=== PATIENT | male | born 1945 | race Caucasian/White ===

== ENCOUNTER 2017-06-07 07:44 | Inpatient (IN) | payer OTHER, MEDICARE ==
[~2017-06-07] VITALS: Ht 180.3 cm; Wt 97.5 kg
[~2017-06-07 07:44] MED LIST: ALEVE ARTHRITI220 MG PO; ALEVE220 MG PO; ASPIRIN81 M1 PO; CYCLOBENZAPRINE10 MG PO; NEURONTIN300 M1 PO; PLAVIX 75MG TAB75 MG PO; TRAMADOL50 MG PO; ZOCOR40 M1 PO
--- NOTE | 2017-06-07 07:59 | ED NEURO DEFICIT/STROKE ---
History of Present Illness General Chief Complaint: General Adult Stated Complaint: BIBA "MUSCLE SPASMS" Source: patient, family, old records, EMS Exam Limitations: no limitations Allergies Coded Allergies: NO KNOWN ALLERGIES (01/27/16) Reconcile Medications Clopidogrel Bisulfate (Clopidogrel) 75 MG TABLET 1 TAB PO DAILY BLOOD THINNER (Reported) Doxazosin Mesylate 2 MG TABLET 1 TAB PO DAILY HTN (Reported) Gabapentin (Neurontin) 300 MG CAPSULE 1 CAP PO QPM PAIN (Reported) Pregabalin (Lyrica) 100 MG CAPSULE 1 CAP PO TID NEUROPATHY (Reported) Simvastatin (Zocor*) 40 MG TABLET 1 TAB PO QPM CHOLESTEROL (Reported) Triage Nurses Notes Reviewed? yes HPI: 71-year-old male with history of TIA on Plavix, chronic back pain sciatica presents brought in by ambulance. According to the patient at 6:30 this morning he woke up went to the bathroom and began doing his daily exercises for his back. He states at that time he suddenly began to have a "buzzing" in his head and began to have spasms of his arms and legs and jaw. He denies headache or vision changes. He denies similar episodes in the past no alcohol or drug use no recent fall or head trauma. He denies nausea or vomiting however now complaining of feeling dizzy. The patient states that he's had tremors to his extremities since this occurred. The only recent change in his medication was at his Lyrica was increased 2 weeks ago by his neurologist Dr. Hung marcano Patient was medicated Benadryl in route with improvement in symptoms. The patient states that his mind feels "clear" and he has no difficulty finding his words it is however he is having difficulty opening his mouth to speak. He denies history of seizure disorder he states he's had an EEG in the past. There 's been no other recent changes in any physical medication. There's been no change in his mental status per family who is at bedside. (MERVIN TRAN,MADDIE) Vital Signs & Intake/Output Vital Signs & Intake/Output Vital Signs Date Time Temp Pulse Resp B/P B/P Pulse O2 O2 Flow FiO2 Mean Ox Delivery Rate 06/07 1213 98.2 82 18 142/79 96 06/07 0908 98.4 76 18 142/79 98 Room Air 06/07 0830 98 Room Air 06/07 0748 98.9 93 18 155/84 98 Room Air Past History Travel History Traveled to [place] past 21 day No Medical History Any Pertinent Medical History? see below for history Neurological: TIA, shingles, cerebellar stroke Musculoskeletal: osteoarthritis, sciatica Pneumonia Vaccine: 08/26/13 Surgical History Surgical History: LUMBAR SURGERY Psychosocial History Who do you live with Spouse What is your primary language Albanian Family History Family History, If Any: BROTHER Family history stroke in brother, Onset: 40-50. Hx Contributory? No (MADDIE RAINEY) Review of Systems Review of Systems Constitutional: Reports: see HPI. All Other Systems: Reviewed and Negative Comments Review of systems: See HPI, All other systems negative. Constitutional, no chills no fever, no malaise HEENT: No visual changes no sore throat no congestion Cardiovascular: No chest pain , no palpitation Skin: no rashes, no change in skin Respiratory: No dyspnea no cough no sputum GI: No nausea no vomiting, no diarrhea, no bloating/constipation : No dysuria Muscle skeletal: No joint pain, no joint swelling, no back pain, no neck pain, Neurologic: No numbness no confusion, no headache Psych: No stress Heme/endocrine: No bruising Immunology: No lymphadenopathy (MADDIE RAINEY) Physical Exam Physical Exam General Appearance: well developed/nourished, alert, awake Cranial Nerves: normal hearing, PERRL Reflexes: 2+: tricep (L), tricep (L), knee (R), knee (L), ankle (R), ankle (L). Comments: Well-developed well-nourished person in no acute distress HEENT: Normal EENT exam; PERRL, EOMI, no nystagmus. HEAD is atraumatic. moist mucous membranes. Neck: Supple, normal range of motion Back: Nontender, Full range of motion Cardiovascular: Regular rate and rhythms no murmurs rubs Respiratory: Chest nontender.There were no bony deformities, no asymmetry. No respiratory distress. Patient speaking in full complete sentences. Breath sounds clear to auscultation bilaterally: NO W/R/R Abdomen: Soft, nontender nondistended, no appreciable organomegaly. Normal bowel sounds. No rebound/guarding, Extremity: No edema, full range of motion of extremities, normal and equal pulses bilaterally, 5 out of 5 strength noted to bilateral upper and lower extremities Neuro: Alert oriented x3, rotary movements of the jaw at rest there is no abnormal movement of the arms or legs, motor sensory normal, cranial nerves II through XII grossly intact. There were no obvious focal neurologic abnormalities. Skin: No appreciable rash on exposed skin, skin is warm and dry. Psych: Mood and affect is normal, memory and judgment is normal Core Measures CVA/TIA Diagnosis: No Severe Sepsis Present: No Septic Shock Present: No (MERVIN TRAN,MADDIE) Progress Differential Diagnosis: electrolyte imbalance, encephalitis, hypoglycemia, intracranial Hem., intracranial mass/tumor, meningitis, migraine BRIONES, seizure disorder, stroke, subarachnoid Hem., vertebrobasilar insuff., dystonic reaction, tardive dyskinesia, adverse reaction to medication Diagnostic Imaging: Viewed by Me: MRI. Discussed w/RAD: MRI. Radiology Impression: PATIENT: CONSTANTINE MCWILLIAMS PRESENT AGE : 71 PATIENT ACCOUNT NO: [id number] : 47 LOCATION: [facility] ORDERING PHYSICIAN: MADDIE TRAN SERVICE DATE: 06/07/17 EXAM TYPE: CAT - CT HEAD WO IV CONTRAST EXAMINATION: CT HEAD WITHOUT CONTRAST CLINICAL INFORMATION: Weakness and aphasia. COMPARISON: Head CT from 01/27/2016 TECHNIQUE: Contiguous axial imaging was performed from the skull base to vertex without intravenous administration of contrast. DLP: 562 mGy-cm FINDINGS: The brain parenchyma has normal attenuation with well-preserved starr-white matter differentiation. No evidence of an acute major vascular territory infarction, hemorrhage, extra- axial fluid collection, mass or midline shift. The ventricles and sulci are unremarkable; no hydrocephalus. The calvarium is intact and the visualized paranasal sinuses, mastoid air cells and middle ear cavities are well aerated. The examined portions of the orbits, globes and temporomandibular joints are normal. IMPRESSION: No acute intracranial pathology. DICTATED BY: ESSENCE FIELDS MD DATE/TIME DICTATED:06/07/17923 FARE REGISTER REPAIRER:CHELLE DATE/TIME TRANSCRIBED:06/07/17923 CONFIDENTIAL, DO NOT COPY WITHOUT APPROPRIATE AUTHORIZATION. <Electronically signed in Other Vendor System> SIGNED BY: ESSENCE FIELDS MD 06/07/17 0931, PATIENT: CONSTANTINE MCWILLIAMS PRESENT AGE: 71 PATIENT ACCOUNT NO: [id number] : 47 LOCATION: [facility] ORDERING PHYSICIAN: MADDIE TRAN SERVICE DATE: 06/07/17 EXAM TYPE: MRI - MRI-HEAD W/O FELICITA EXAMINATION: MR BRAIN WITHOUT CONTRAST CLINICAL INFORMATION: Weakness. Difficulty speaking. Evaluate for cerebrovascular accident. COMPARISON: Brain MRI 07/22/2012. TECHNIQUE: MRI of the brain without contrast was obtained using routine sequences. FINDINGS: There are scattered foci of T2 FLAIR signal hyperintensity within the periventricular white matter that most like represent a chronic manifestation of small vessel ischemia. There is no acute territorial infarct. No pathological magnetic susceptibility artifact. Intracranial vascular flow voids are grossly maintained. There is no intracranial mass effect or midline shift. No abnormal extra-axial collection. Lateral and third ventricles are normal. No hydrocephalus. Midline structures including the cervicomedullary junction are normal. Bone marrow signal intensity is normal. There is no mastoid or middle ear effusion. Visualized paranasal sinuses are well-aerated with the exception of mild disease within the ethmoid air cells. Globes and orbits are symmetric. IMPRESSION: There are a few scattered chronic small vessel ischemic changes within the periventricular white matter. No evidence of acute territorial infarct or hemorrhage. DICTATED BY: KEHINDE CHAWLA MD DATE/TIME DICTATED:06/07/171224 FARE REGISTER REPAIRER: CHELLE DATE/TIME TRANSCRIBED:06/07/171224 CONFIDENTIAL, DO NOT COPY WITHOUT APPROPRIATE AUTHORIZATION. <Electronically signed in Other Vendor System> SIGNED BY: KEHINDE CHAWLA MD 06/07/17 1232 Initial ED EKG: normal intervals, normal p-waves, normal QRS complex, normal sinus rhythm (90) Prior EKG: unchanged (01/2016) (MERVIN TRAN,MADDIE) Plan of Care: Orders Procedure Date/time Status Nothing by Mouth 06/07 D Active Misc Message 06/07 1431 Active ED Holding Orders 06/07 1431 Active Vital Signs 06/07 1431 Active Code Status 06/07 1431 Active Admit to inpatient 06/07 1424 Active Patient Data 06/07 1417 Active Intake & Output 06/07 0909 Active Add-on Test (ER Only) 06/07 0906 Active PROLACTIN 06/07 0804 Complete Telemetry/Catholic Priest 06/07 0758 Active URINE DRUG SCREEN FOR ER ONLY 06/07 758 Complete TROPONIN LEVEL 06/07 758 Complete ETHANOL 06/07 758 Complete COMPREHENSIVE METABOLIC PANEL 06/07 758 Complete CBC WITHOUT DIFFERENTIAL 06/07 758 Complete EKG 06/07 748 Active Laboratory Tests 06/07/17 1220: Urine Opiates Screen < 100.00, Methadone Screen 44, Barbiturate Screen < 60, Ur Phencyclidine Scrn < 6.00, Amphetamines Screen < 100, U Benzodiazepines Scrn < 85, Urine Cocaine Screen < 50, Urine Cannabis Screen < 5.00 06/07/17 0804: Anion Gap 13, Estimated GFR > 60, BUN/Creatinine Ratio 13.3, Glucose 102 H, Calcium 10.1, Total Bilirubin 0.9, AST 36, ALT 46, Alkaline Phosphatase 57, Troponin I < 0.01, Total Protein 6.7, Albumin 4.2, Globulin 2.5, Albumin/ Globulin Ratio 1.7, Prolactin 31.6 H, CBC w Diff NO MAN DIFF REQ, RBC 4.99, MCV 88.7, MCH 30.3, RDW 14.1, MPV 7.5, Gran % 43.5, Lymphocytes % 37.5, Monocytes % 16.3 H, Eosinophils % 2.2, Basophils % 0.5, Absolute Granulocytes 1.8, Absolute Lymphocytes 1.5, Absolute Monocytes 0.7 H, Absolute Eosinophils 0.1, Absolute Basophils 0, PUBS MCHC 34.1, Serum Alcohol < 10.0 Labs ordered old records reviewed 830-the patient was seen and evaluated by Dr. Rob as well after discussion we will get an MRI the patient reports that his symptoms are improving after his medicated with an additional dose of 50 mg of Benadryl. Repeat evaluation patient reports to feeling improved will continue to monitor On repeat evaluation patient is resting in no apparent distress however when I walked in the room and we made eye contact T began to shake again Valium IV was ordered discussed the patient and his at length all his lab results CAT scan findings did the pending MRI 1250-I spoke with the patient's neurologist Dr marcano- he does not believe pts presentation today could be cauesd by the recent increase in lyrica. The patient is noted to be resting in no apparent distress when I walked by the room with no abnormal movements however was speaking with the patient whenever he moves his arms patient is noted to be having rotary accessory movements to his arms he states that he had to have his feed him because of the tremors while attempting to hold a fork. Case was again discussed with Dr. Rob in case management. Patient was unable to ambulate and get out of bed, secondary to symptoms he is a fall risk discussed with patient that he may require short-term rehabilitation stay she is in agreement with (MADDIE RAINEY) Departure Departure Time of Disposition: 1350 Disposition: STILL A PATIENT Condition: Stable Clinical Impression Primary Impression: Vertigo Secondary Impressions: Dystonic drug reaction, Gait disorder Referrals: LORE VALLES,FAISAL Contreras III (PCP/Family) Departure Forms: Customer Survey General Discharge Information Admission Note Spoke With: LINH VALLES,BRIGITTE Documentation of Exam: Documentation of any treatments & extenuating circumstances including Concerns Regarding Discharge (functional status, medication knowledge or non-compliance, living conditions, etc.) that warrant an admission rather than observation: [ Patient will require physical therapy consult, patient's gait is not at baseline he is a fall risk. Patient is unable to perform ADLs secondary to his symptoms today, he is unable to get up and ambulate around the emergency room given new presentation of symptoms premature discharge would BE medically harmful possible neurology consult, (MADDIE RAINEY) PA/LEGAL SERVICES PROFESSIONAL Co-Sign Statement Statement: ED Attending supervision documentation- [x] I saw and evaluated the patient. I have also reviewed all the pertinent lab results and diagnostic results. I agree with the findings and the plan of care as documented in the PA's/LEGAL SERVICES PROFESSIONAL's documentation. [] I have reviewed the ED Record and agree with the PA's/LEGAL SERVICES PROFESSIONAL's documentation. [] Additions or exceptions (if any) to the PAs/LEGAL SERVICES PROFESSIONAL's note and plan are summarized below: [] (ALIX VALLES,MAI Miranda)
--- NOTE | 2017-06-07 08:04 | NUR ---
LABS DRAWN AND SENT AT THIS TIME, LAV,SST,BLUE,TURPIN TOP
--- NOTE | 2017-06-07 08:07 | NUR ---
71 YO MALE BIBA FROM HOME. PT HAVING WEAKNESS AND TROUBLE SPEAKING AFTER WAKING UP THIS AM. PT ABLE TO MOVE ALL EXTREMITIES BUT NOTED WITH TREMOR LIKE ACTIVITY WITH MOVMENENT. PT NOTED WITH CLEAR SPEECH BUT HAVING DIFFICULTY MOVING MOUTH TO SPECK. PT ALERT AND ORIENTED X4. STATES HE WOKE UP AND DID SOME EXERCISES AND THEN THIS STARTED. VSS AT THIS TIME. PA AT BEDSIDE ON ARRIVAL TO ROOM. 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
--- NOTE | 2017-06-07 08:07 | NUR ---
PT MEDICATED WITH BENADRYL PER EMAR AT THIS TIME
--- NOTE | 2017-06-07 08:09 | NUR ---
PER , THESES SYMTPOMS STARTED BETWEEN [id number] WHEN THE PT AMBULTED BACK FROM THE BATHROOM.
[2017-06-07] MEDS ORDERED: LYRICA100 M1 PO ×2 (08:12→16:46)
[2017-06-07] MEDS ORDERED: CLOPIDOGREL75 M1 PO (08:13)
[2017-06-07] MEDS ORDERED: DOXAZOSIN MESYLA2 M1 PO ×2 (08:14→16:47)
[2017-06-07 08:17] LABS: ABSOLUTE BASOPHIL COUNT 0 /CUMM (0.0-0.2); ABSOLUTE EOSINOPHIL COUNT 0.1 /CUMM (0.0-0.7); ABSOLUTE GRANULOCYTE CT 1.8 /CUMM (1.4-6.5); ABSOLUTE LYMPH COUNT 1.5 /CUMM (1.2-3.4); ABSOLUTE MONOCYTE COUNT 0.7 /CUMM (0.10-0.60); BASOPHIL % 0.5 % (0.0-2.0); EOSINOPHIL % 2.2 % (0-5); GRANULOCYTE % 43.5 % (42.2-75.2); HEMATOCRIT 44.3 % (42-52); MEAN CORPUSCULAR HGB 30.3 PG (27.0-31.0); MEAN CORPUSCULAR HGB CONC 34.1 G/DL (33.0-37.0); MEAN CORPUSCULAR VOLUME 88.7 FL (80.0-94.0); MEAN PLATELET VOLUME 7.5 FL (7.4-10.4); PLATELET COUNT 202 /CUMM (130-400); RBC DISTRIBUTION WIDTH 14.1 % (11.5-14.5); RED BLOOD CELL CT 4.99 /CUMM (4.70-6.10); WHITE BLOOD CELL COUNT 4.1 /CUMM (4.8-10.8)
--- NOTE | 2017-06-07 08:35 | NUR ---
PER MRI, CANNOT TAKE PT UNTILL APPROX 1030. 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 PT STATES HE HAS HAD MRI'S SINCE PLACEMENT. PA AWARE
--- NOTE | 2017-06-07 08:40 | NUR ---
PT SPEAKING MORE CLEARLY AT THIS TIME. STATES "I FEEL LIKE I CAN MOVE MY ARMS AND LEGS ALOT BETTER NOW" PT AND AWARE PT WILL GO TO CT SCAN BEFORE MRI.
--- NOTE | 2017-06-07 08:42 | NUR ---
PT TO CT SCAN VIA STRETCHER AT THIS TIME
--- NOTE | 2017-06-07 09:08 | NUR ---
PT MEDICATEE WITH 2.5MG VALIUNM PER ORDER AT THIS TIME. PT REMAINS NSR ON MONITOR. REMAINS SPEAKING CLEAR AND A&OX4.
--- NOTE | 2017-06-07 09:31 | CT SCAN REPORT ---
EXAMINATION: CT HEAD WITHOUT CONTRAST CLINICAL INFORMATION: Weakness and aphasia. COMPARISON: Head CT from 01/27/2016 TECHNIQUE: Contiguous axial imaging was performed from the skull base to vertex without intravenous administration of contrast. DLP: 562 mGy-cm FINDINGS: The brain parenchyma has normal attenuation with well-preserved starr-white matter differentiation. No evidence of an acute major vascular territory infarction, hemorrhage, extra-axial fluid collection, mass or midline shift. The ventricles and sulci are unremarkable; no hydrocephalus. The calvarium is intact and the visualized paranasal sinuses, mastoid air cells and middle ear cavities are well aerated. The examined portions of the orbits, globes and temporomandibular joints are normal. IMPRESSION: No acute intracranial pathology.
--- NOTE | 2017-06-07 10:06 | NUR ---
PT C/O "MY SYMPTOMS ARE GETTING WORSE" PA TO BEDSIDE. PT REMAINS ABLE TO SPEAK FULL SENTANCES, STATES HE FEELS LIKE "IM FLOPPING AROUND" PT SHAKING HEAD BACK AND FORTH, WHEN THIS RN ASKED WHY HE IS DOING THAT PT STATES "I HAVE A HEADACHE, I CANT CONTROL MY HEAD" PT MEDICATED PER EMAR AT THIS TIME WITH IV TYLENOL AND VALIUM. IV FLUIDS INFUSING PER ORDER AT THIS TIME. VSS. PT REMAINS NSR ON MONITOR.
--- NOTE | 2017-06-07 11:00 | NUR ---
ASSUMED CARE, PT AWAITING MRI. AT BEDSIDE. Informed waiting has been performed.
--- NOTE | 2017-06-07 11:16 | NUR ---
PT TO MRI VIA STRETCHER.
--- NOTE | 2017-06-07 12:11 | NUR ---
BACK FROM MRI.
--- NOTE | 2017-06-07 12:21 | NUR ---
URINE TRIO SENT AT THIS TIME.
--- NOTE | 2017-06-07 12:32 | MRI REPORT ---
EXAMINATION: MR BRAIN WITHOUT CONTRAST CLINICAL INFORMATION: Weakness. Difficulty speaking. Evaluate for cerebrovascular accident. COMPARISON: Brain MRI 07/22/2012. TECHNIQUE: MRI of the brain without contrast was obtained using routine sequences. FINDINGS: There are scattered foci of T2 FLAIR signal hyperintensity within the periventricular white matter that most like represent a chronic manifestation of small vessel ischemia. There is no acute territorial infarct. No pathological magnetic susceptibility artifact. Intracranial vascular flow voids are grossly maintained. There is no intracranial mass effect or midline shift. No abnormal extra-axial collection. Lateral and third ventricles are normal. No hydrocephalus. Midline structures including the cervicomedullary junction are normal. Bone marrow signal intensity is normal. There is no mastoid or middle ear effusion. Visualized paranasal sinuses are well-aerated with the exception of mild disease within the ethmoid air cells. Globes and orbits are symmetric. IMPRESSION: There are a few scattered chronic small vessel ischemic changes within the periventricular white matter. No evidence of acute territorial infarct or hemorrhage.
--- NOTE | 2017-06-07 12:42 | NUR ---
PT ASKING FOR WATER, OK TO GIVE WATER. PT TOLERATING. LUNCH TRAY ORDERED.
--- NOTE | 2017-06-07 12:50 | NUR ---
CHELSEA JEFFRIES IN TO REVIEW POC WITH PT AND PT'S .
--- NOTE | 2017-06-07 13:15 | NUR ---
ATTEMPTED TO STAND PT UP AND AMBULATE WITH WALKER. PT TO END OF STRETCHER, BUT UNABLE TO PUT KEEP FEET ON THE GROUND. PT NOTED WITH FLAILING OF RIGHT ARM AND APPEARS VERY ANXIOUS WITH HEAVY BREATHING. ADVISED TO SLOW DOWN BREATHING AND CONCENTRATE ON PUTTING FEET ON FLOOR, PT STATES "I CAN'T, I AM GOING TO FALL". PT ASSISTED BACK TO BED. PLAN IS FOR ADMISSION AT THIS TIME. Informed waiting has been performed.
--- NOTE | 2017-06-07 13:30 | NUR ---
PT VOMITED SMALL AMOUNT OF FOOD, MEDICATED WITH IVP ZOFRAN PER EMAR.
--- NOTE | 2017-06-07 15:00 | NUR ---
HOUSESTAFF IN FOR EVAL
--- NOTE | 2017-06-07 15:15 | NUR ---
REPORT HANDED OFF TO ANGELO CURRAN.
--- NOTE | 2017-06-07 15:49 | History & Physical ---
General Information and HPI Allergies/Medications Allergies: Coded Allergies: NO KNOWN ALLERGIES (01/27/16) Home Med list Clopidogrel Bisulfate (Clopidogrel) 75 MG TABLET 1 TAB PO DAILY BLOOD THINNER (Reported) Doxazosin Mesylate 2 MG TABLET 0.5 TAB PO DAILY Urinary symptoms (Reported) Pregabalin (Lyrica) 100 MG CAPSULE 1 CAP PO BID Neuropathy (Reported) Simvastatin (Zocor*) 40 MG TABLET 1 TAB PO QPM CHOLESTEROL (Reported) Past History Travel History Traveled to [place] past 21 day No Medical History Neurological: TIA, shingles cerebellar stroke EENT: NONE Respiratory: NONE Gastrointestinal: NONE Hepatic: NONE Renal: NONE Musculoskeletal: osteoarthritis, sciatica Psychiatric: NONE Endocrine: NONE Blood Disorders: NONE Cancer(s): NONE MANAGER ELECTRONIC/Reproductive: NONE Pneumonia Vaccine: 08/26/13 Surgical History Surgical History: LUMBAR SURGERY Past Family/Social History Family History Relations & Conditions if any BROTHER Family history stroke in brother, Onset: 40-50. Psychosocial History Primary Language: [place] Leonean Functional Ability Ambulation: independent Core Measures/Miscellaneous Cerebrovascular Accident CVA/TIA Diagnosis: No Sepsis (View Protocol) Severe Sepsis Present: No Septic Shock Septic Shock Present: No
--- NOTE | 2017-06-07 16:10 | History & Physical ---
ADOLFO LOYA 06/07/17 1609: General Information and HPI MD Statement: I have seen and personally examined CONSTANTINE MCWILLIAMS and documented this H&P. The patient is a 71 year old M who presented with a patient stated chief complaint of [sudden onset ringing ears and generalized limb movements]. 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 Shingles neuropathic pain to left rib 2 months ago managed on Lyrica 50 mg in AM/100 mg in PM, intermittent episodes of dysuria with negative urine cultures currently managed on doxazosin 1 mg, YONAS unresolved S/P uvulectomy > 40yrs ago and currently on nocturnal CPAP (8 mmHg), L4/L5/S1 decompression and a fractured left ankle who was BIBA after sudden onset generalized body weakness and limb twitching. Symptoms started this morning at approximately 6:30 with what he describes as a "humming sound in his head and ears" followed by spontaneous uncontrollable jerking limb movement/spasms and resultant generalized overall body weakness and a short episode of inability to speak. He denies any preceding headache, chest pain, palpitations, fevers, chills, loss of bowel or bladder function. On arrival in the ED the patient had 2 episodes of nausea and nonbloody vomitus triggered by movement or light, a headache localized around the right frontal region. He denied any recent travel, sick contacts, changes in diet, exposure to animals or ticks. The only change to his medication includes an increase of his Lyrica dose from 50 mg in AM/100 mg in the p.m upto 100 mg BID 2 weeks ago. He endorses occasional corticosteroid injections in the lumbar region, the last being in spring 2016. Allergies/Medications Allergies: Coded Allergies: NO KNOWN ALLERGIES (01/27/16) Home Med list Clopidogrel Bisulfate (Clopidogrel) 75 MG TABLET 1 TAB PO DAILY BLOOD THINNER (Reported) Doxazosin Mesylate 2 MG TABLET 0.5 TAB PO DAILY Urinary symptoms (Reported) Pregabalin (Lyrica) 100 MG CAPSULE 1 CAP PO BID Neuropathy (Reported) Simvastatin (Zocor*) 40 MG TABLET 1 TAB PO QPM CHOLESTEROL (Reported) Past History Travel History Traveled to [place] past 21 day No Medical History Neurological: TIA, shingles cerebellar stroke EENT: NONE Respiratory: NONE Gastrointestinal: NONE Hepatic: NONE Renal: NONE Musculoskeletal: osteoarthritis, sciatica Psychiatric: NONE Endocrine: NONE Blood Disorders: NONE Cancer(s): NONE WORK DISTRIBUTOR/Reproductive: NONE Pneumonia Vaccine: 08/26/13 Surgical History Surgical History: LUMBAR SURGERY Past Family/Social History Family History Relations & Conditions if any BROTHER Family history stroke in brother, Onset: 40-50. Psychosocial History Primary Language: Arabic Functional Ability Ambulation: independent Review of Systems Review of Systems Constitutional: Reports: see HPI. EENTM: Reports: blurred vision, double vision, hearing changes. Cardiovascular: Reports: no symptoms. Respiratory: Reports: no symptoms. GI: Reports: nausea, vomiting. Genitourinary: Reports: see HPI. Musculoskeletal: Reports: see HPI. Skin: Reports: no symptoms. Neurological/Psychological: Reports: see HPI. Hematologic/Endocrine: Reports: no symptoms. Immunologic/Allergic: Reports: no symptoms. Exam & Diagnostic Data Last 24 Hrs of Vital Signs/I&O Vital Signs Date Time Temp Pulse Resp B/P B/P Pulse O2 O2 Flow FiO2 Mean Ox Delivery Rate 06/07 1750 97.8 88 20 170/100 92 06/07 1520 98.7 84 17 157/74 93 Room Air 06/07 1213 98.2 82 18 142/79 96 06/07 0908 98.4 76 18 142/79 98 Room Air 06/07 0830 98 Room Air 06/07 0748 98.9 93 18 155/84 98 Room Air Intake & Output 06/07 1600 06/07 0800 06/07 0000 Intake Total 0 Output Total Balance 0 Intake, Oral 0 Physical Exam General Appearance Alert, Oriented X3, patient is laying in bed with his eyes closed. had 3 episodes of nonbloody vomitus during physical examination that was triggered by finger to nose testing Skin No Breakdown, No Significant Lesion Skin Temp/Moisture Exam: Warm/Dry Sepsis Skin Exam (color): Normal for Ethnicity HEENT PERRLA, EOMI, Mucous Membr. moist/pink, evidence of photophobia Neck Supple Cardiovascular Regular Rate, Normal S1, Normal S2 Lungs Normal Air Movement, diminished breath sounds in the basilar regions bilaterally. Abdomen Normal Bowel Sounds, Soft, No Tenderness Neurological slow speech with very mild slurring. Cranial nerves III through XII intact. Sensation intact in all extremities. 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 no evidence of dysmetria in the LUE. Attempts to assess this in the RUE resulted in abrupt spontaneous flailing arm and subsequent vomiting. Negative Babinski Extremities No Edema, Normal Pulses Vascular Pulses Symmetrical Last 24 Hrs of Labs/Isaiah: Laboratory Tests 06/07/17 1220: Urine Opiates Screen < 100.00, Methadone Screen 44, Barbiturate Screen < 60, Ur Phencyclidine Scrn < 6.00, Amphetamines Screen < 100, U Benzodiazepines Scrn < 85, Urine Cocaine Screen < 50, Urine Cannabis Screen < 5.00 06/07/17 0804: Anion Gap 13, Estimated GFR > 60, BUN/Creatinine Ratio 13.3, Glucose 102 H, Hemoglobin A1c Pending, Calcium 10.1, Total Bilirubin 0.9, AST 36, ALT 46, Alkaline Phosphatase 57, Troponin I < 0.01, Total Protein 6.7, Albumin 4.2, Globulin 2.5, Albumin/Globulin Ratio 1.7, TSH Pending, Free T4 1.03, Total T3 Pending, Prolactin 31.6 H, Cortisol AM Sample Pending, CBC w Diff NO MAN DIFF REQ, RBC 4.99, MCV 88.7, MCH 30.3, RDW 14.1, MPV 7.5, Gran % 43.5, Lymphocytes % 37.5, Monocytes % 16.3 H, Eosinophils % 2.2, Basophils % 0.5, Absolute Granulocytes 1.8, Absolute Lymphocytes 1.5, Absolute Monocytes 0.7 H, Absolute Eosinophils 0.1, Absolute Basophils 0, PUBS MCHC 34.1, Serum Alcohol < 10.0 Diagnostic Data EKG Results Sinus rhythm, HR 98 BPM. First-degree AV block. MT interval 248. Nonspecific T-wave abnormalities anterior leads. QTC 424. Other Results Head CT: No acute intracranial pathology Head MRI: There are a few scattered chronic small vessel ischemic changes within the periventricular white matter. No evidence of acute territorial infarct or hemorrhage. 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 Shingles neuropathic pain to left rib 2 months ago managed on Lyrica 50 mg in AM/100 mg in PM, intermittent episodes of dysuria with negative urine cultures currently managed on doxazosin 1 mg, YONAS unresolved S/P uvulectomy > 40yrs ago and currently on nocturnal CPAP (8 mmHg), L4/L5/S1 decompression and a fractured left ankle who was BIBA after sudden onset generalized body weakness and limb twitching. Symptoms started abruptly after waking up with what he described as a humming sound in his head/ears, subsequent uncontrollable generalized limb movement/ spasms, generalized body weakness and a brief episode of inability to speak. On arrival in the ED he had 3 episodes of nonbloody vomitus triggered by movement/ light and a headache localized around the right frontal region. The only recent change to medications include increase of Lyrica from 50mg in AM/ 100mg in PM up to 100 mg BID. Patient endorses occasional corticosteroids injections in the lumbar region, last one in the spring 2016. VS on admission: BP 155/84, HR 93, RR 18, SPO2 98% on RA, T 98.9 Pertinent labs on admission: WBC 4.1, 16.3% monocytes, H&H 15.1/44.3, platelets 202K, sodium 144, potassium 3.6, chloride 106, bicarbonate 25, BUN/CR 12/0.9, glucose 102 Urine tox: Unremarkable Problem list: 1. Acute onset generalized weakness with spontaneous flailing in all extremities 2. Nausea, vomiting 3. First-degree AV block 4. History of neuropathic pain 5. Intermittent episodes of dysuria 6. Hypophosphatemia: 1.4 Plan: * Differential diagnosis: cerebellar infarct vs medication side effect (Lyrica) vs late manifestation of Lyme disease. Considering a normal-appearing MRI of the brain, He is presenting with a bizarre presentation with very acute onset. Renal function appears to be normal hence the differential of Lyrica side effect is less likely at this time. However, we will start him on fluid hydration D5NS. Head CT and MRI were unremarkable for any intracranial pathology. We'll follow-up with neurology recommendations for further assessment of cerebellar vasculature and utility of dual antiplatelet therapy versus continuing on Plavix only. We'll follow-up with radiology for second read in the a.m. * Baseline first-degree AV block which was present on previous EKG in January 2016. No specific report of tick bite. Will obtain a Lyme MITCEHLL and if positive follow up with Western blot, ID consult and utility of ceftriaxone possible lumbar puncture in the morning * Possible lumbar puncture in the morning * Hydration with D5NS @ 100/hr, NPO at this time with swallow evaluation in the morning * Neurochecks every 4 hours * Aspiration precautions at this time * We'll restart Lyrica once patient is clinically stable to avoid potential of withdrawal seizures * Orthostatics in the morning * Follow-up BEP, magnesiumm, phosphorus this evening * As Ranked By This Provider Problem List: 1. Vertigo 2. Cerebellar stroke 3. Gait disorder Core Measures/Miscellaneous Acute Coronary Syndrome ACS Diagnosis: No Cerebrovascular Accident CVA/TIA Diagnosis: No Congestive Heart Failure CHF Diagnosis: No VTE (View Protocol) VTE Risk Factors: Age > 40 [facility] prophylaxis d/t: No contraindications No VTE Pharm Prophylaxis d/t: No contraindications VTE Diagnosis: No VTE Type: NONE VTE Confirmed by (Test): NONE Sepsis (View Protocol) Severe Sepsis Present: No Septic Shock Septic Shock Present: No Miscellaneous Documentation Attending Case Discussed With: JUAN DIEGO BURCIAGA MD Primary Care Physician: [facility] Patient sees [facility] Specialists Dr. Hudson (cardiology in [place]) Level of Patient Care: General Medicine Resident Review Statement Resident Statement: examined this patient, discussed with buyer internship, agreed with buyer internship, discussed with family, reviewed EMR data (avail), discussed with nursing , reviewed images JUAN DIEGO BURCIAGA MD 06/08/17 1517: Attending MD Review Statement Attending Statement Attending MD Statement: examined this patient, discuss w/resident/PA/GAS MASK INSPECTOR, agreed w/resident/PA/GAS MASK INSPECTOR, reviewed EMR data (avail) Attending Assessment/Plan: 71M PMH TIAs 2 approximately 2 years ago, a follow-up loop recorder unremarkable approximately (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 Shingles neuropathic pain to left rib 2 months ago managed on Lyrica 50 mg in AM/100 mg in PM, intermittent episodes of dysuria with negative urine cultures currently managed on doxazosin 1 mg, YONAS unresolved S/P uvulectomy > 40yrs ago and currently on nocturnal CPAP (8 mmHg), L4/L5/S1 decompression and a fractured left ankle presenting with 1 day of acute onset of a humming sound in his head, weakness in all four extremities, uncontrolled flailing of both arms with movement (no such symptoms at rest), with lightheadedness and ataxia. Patient reports similar symptoms when having a migraine, but this is the worst it has ever been. Reports blurry vision as well that is not directional. Denies headache, changes in hearing, dysarthria, dysphagia, altered sensation. On exam, patient appears weak. He has no resting tremor but when he tries to move his arms they flail in choreatic movements. CN grossly intact. 4/5 strength in all four extremities. Sensation intact. Gait deferred. CT and MRI of head show no evidence of bleed or infarction. Plan - Admit to general medicine - Continue Plavix, statin - Send Lyme titer - Consider LP if no improvement - Discontinue Gabapentin for now as may be causing toxicity - Neurology consult - Neuro checks - Continue remaining home medications - DVT PPx
--- NOTE | 2017-06-07 16:32 | NUR ---
PT ASSIGNED TO ROOM 219 BED 2
--- NOTE | 2017-06-07 16:38 | NUR ---
REPORT GIVEN TO JANEL 2NA
[2017-06-07 17:50] VITALS: BP 170/100
--- NOTE | 2017-06-07 18:00 | NUR ---
1730 PATIENT ARRIVED TOT HE FLOOR, A+O X2, ON RA, NAUSEA WITH CLEAR EMESIS, REPORTING SPASMS X4 EXTREMITIES WHICH ARE OBSERVED INTERMIITENTLY, NO OTHER SIGNS OF DISTRESS NOTED, VSS., HYPERTENSIVE DOCUMENTED, WITH NAUSEA AND SPASMS.
[2017-06-07 19:25] LABS: ABSOLUTE BASOPHIL COUNT 0 /CUMM (0.0-0.2); ABSOLUTE EOSINOPHIL COUNT 0 /CUMM (0.0-0.7); ABSOLUTE MONOCYTE COUNT 0.3 /CUMM (0.10-0.60); EOSINOPHIL % 0 % (0-5); MEAN CORPUSCULAR VOLUME 91.1 FL (80.0-94.0)
[2017-06-07 19:32] LABS: ABSOLUTE GRANULOCYTE CT 5.2 /CUMM (1.4-6.5); ABSOLUTE LYMPH COUNT 0.5 /CUMM (1.2-3.4); BASOPHIL % 0.2 % (0.0-2.0); HEMATOCRIT 43.4 % (42-52); MEAN CORPUSCULAR HGB 30.4 PG (27.0-31.0); MEAN CORPUSCULAR HGB CONC 33.3 G/DL (33.0-37.0); MEAN PLATELET VOLUME 7.9 FL (7.4-10.4); PLATELET COUNT 163 /CUMM (130-400); RBC DISTRIBUTION WIDTH 13.9 % (11.5-14.5); RED BLOOD CELL CT 4.76 /CUMM (4.70-6.10)
[2017-06-07 19:48] LABS: GRANULOCYTE % 86.6 % (42.2-75.2)
[2017-06-07 20:24] VITALS: BP 1250/84; BP 150/84
[2017-06-07 22:25] VITALS: BP 146/86
[2017-06-08 06:20] VITALS: BP 126/60
--- NOTE | 2017-06-08 06:54 | PN- Housestaff ---
JOHNY VALLES,[facility] 06/08/17 0654: Subjective Follow-up For: Vertigo Jerky body movements Subjective: I have personally seen and examined the patient this morning. He was not able to sleep all night because of vomiting. Still complains of diplopia, headache and vertigo. Denies any fever, chills, SOB, chest pain or palpitations. Review of Systems Constitutional: Denies: see HPI. EENTM: Reports: double vision. Cardiovascular: Denies: no symptoms. Respiratory: Denies: no symptoms. Gastrointestinal: Denies: no symptoms. Genitourinary: Denies: no symptoms. Musculoskeletal: Reports: see HPI. Skin: Denies: no symptoms. Neurological/Psychological: Reports: headache. Hematologic/Endocrine: Denies: no symptoms. Objective Last 24 Hrs of Vital Signs/I&O Vital Signs Date Time Temp Pulse Resp B/P B/P Pulse O2 O2 Flow FiO2 Mean Ox Delivery Rate 06/08 0620 98.2 66 20 126/60 94 06/08 0000 CPAP 06/07 2225 97.4 80 20 146/86 95 Room Air 06/07 2024 76 18 150/84 95 Room Air Room Air 06/07 1750 97.8 88 20 170/100 92 06/07 1520 98.7 84 17 157/74 93 Room Air Intake & Output 06/08 1600 06/08 0800 06/08 0000 Intake Total 0 800 Output Total 450 300 Balance 0 350 -300 Intake, IV 800 Intake, Oral 0 Output, Urine 450 300 Patient 215 lb Weight Weight Reported by Patient Measurement Method Physical Exam General Appearance: Alert, Oriented X3, Cooperative Skin: No Rashes, No Breakdown Skin Temp/Moisture Exam: Warm/Dry HEENT: Atraumatic (Nystagmus), PERRLA, EOMI, Mucous Membr. moist/pink Neck: Supple, No JVD, No thryomegaly, +2 Carotid Pulse wo Bruit Cardiovascular: Regular Rate, Normal S1, Normal S2, No Murmurs Lungs: Clear to Auscultation, Normal Air Movement Abdomen: Normal Bowel Sounds, Soft, No Tenderness, No Hepatospenomegaly, No Masses Neurological: Normal Gait (Dysmetria on right side), Normal Speech, Strength at 5/5 X4 Ext, Normal Tone, Sensation Intact Extremities: No Clubbing, No Cyanosis, No Edema, Normal Pulses Vascular: Normal Pulses Current Medications: Current Medications Sig/Mckay Start time Last Medication Dose Route Stop Time Status Admin Acetaminophen 650 MG Q6P PRN 06/07 1630 AC PO Aspirin 325 MG ONCE ONE 06/08 1315 DC PO 06/08 1316 Atorvastatin Calcium 80 MG 17006/08 1700 AC PO Atorvastatin Calcium 10 MG 17006/07 1700 DC PO Clopidogrel Bisulfate 75 MG DAILY 06/08 1000 AC PO Dextrose/Sodium 1,000 ML Q10H 06/07 1845 AC 06/07 Chloride IV 1935 Enoxaparin Sodium 40 MG DAILY 06/07 1626 AC 06/07 SC 2238 Ondansetron HCl 4 MG ONCE ONE 06/07 1715 DC 06/07 IV 06/07 171 1708 Ondansetron HCl 0 .STK-MED ONE 06/07 1711 DC .ROUTE Ondansetron HCl 0 .STK-MED ONE 06/07 1333 DC .ROUTE Ondansetron HCl 4 MG ONCE ONE 06/07 1330 DC 06/07 IV 06/07 1331 1330 Oxycodone/ 1 TAB Q6P PRN 06/07 1630 AC Acetaminophen PO Oxycodone/ 2 TAB Q6P PRN 06/07 1630 AC Acetaminophen PO Potassium Phosphate 15 mMol ONE ONE 06/07 2245 DC 06/07 Sodium Chloride 250 ML IV 06/08 0248 2238 Potassium Phosphate 15 mMol ONE ONE 06/07 2015 CAN Sodium Chloride 250 ML IV 06/08 0018 Promethazine HCl 25 MG Q4P PRN 06/07 1815 AC 06/08 IV 06/14 181 0715 Sodium Chloride 1,000 ML Q10H 06/07 1715 DC 06/07 IV 1818 Last 24 Hrs of Lab/Isaiah Results Last 24 Hrs of Labs/Mics: Laboratory Tests 06/08/17 0728: Anion Gap 10, Estimated GFR > 60, BUN/Creatinine Ratio 15.7, Phosphorus 2.5, Magnesium 2.0, Triglycerides 115, Cholesterol 140, LDL Cholesterol, Calc 73, HDL Cholesterol 44, Cholesterol/HDL Ratio 3, CBC w Diff NO MAN DIFF REQ, RBC 4.62 L , MCV 91.3, MCH 30.6, RDW 14.6 H, MPV 7.8, Gran % 76.4 H, Lymphocytes % 12.7 L, Monocytes % 10.4 H, Eosinophils % 0.1, Basophils % 0.4, Absolute Granulocytes 5.5, Absolute Lymphocytes 0.9 L, Absolute Monocytes 0.7 H, Absolute Eosinophils 0, Absolute Basophils 0, PUBS MCHC 33.5 06/08/17 0705: Lyme Disease Antibody Pending 06/07/17 1910: Anion Gap 7, Estimated GFR > 60, BUN/Creatinine Ratio 15.0, Total Bilirubin 1.0, Direct Bilirubin 0.2, AST 31, ALT 40, Alkaline Phosphatase 52, Total Protein 6.1 L, Albumin 3.8, CBC w Diff NO MAN DIFF REQ, RBC 4.76, MCV 91.1, MCH 30.4, RDW 13.9, MPV 7.9, Gran % 86.6 H, Lymphocytes % 8.4 L, Monocytes % 4.8, Eosinophils % 0, Basophils % 0.2, Absolute Granulocytes 5.2, Absolute Lymphocytes 0.5 L, Absolute Monocytes 0.3, Absolute Eosinophils 0, Absolute Basophils 0, PUBS MCHC 33.3 Assessment/Plan Assessment: Assessment: 71-year-old gentleman with a PMH of TIAs 2 approximately 2 years ago, a follow- up loop recorder unremarkable approximately (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 Shingles neuropathic pain to left rib 2 months ago managed on Lyrica 50 mg in AM/100 mg in PM, intermittent episodes of dysuria with negative urine cultures currently managed on doxazosin 1 mg, YONAS unresolved S/P uvulectomy > 40yrs ago and currently on nocturnal CPAP (8 mmHg), L4/L5/S1 decompression and a fractured left ankle who was BIBA after sudden onset generalized body weakness and limb twitching. Symptoms started abruptly after waking up with what he described as a humming sound in his head/ears, subsequent uncontrollable generalized limb movement/ spasms, generalized body weakness and a brief episode of inability to speak. On arrival in the ED he had 3 episodes of nonbloody vomitus triggered by movement/ light and a headache localized around the right frontal region. The only recent change to medications include increase of Lyrica from 50mg in AM/ 100mg in PM up to 100 mg BID. Patient endorses occasional corticosteroids injections in the lumbar region, last one in the spring 2016. VS on admission: BP 155/84, HR 93, RR 18, SPO2 98% on RA, T 98.9 Pertinent labs on admission: WBC 4.1, 16.3% monocytes, H&H 15.1/44.3, platelets 202K, sodium 144, potassium 3.6, chloride 106, bicarbonate 25, BUN/CR 12/0.9, glucose 102 Urine tox: Unremarkable Problem list: 1. Acute onset generalized weakness with spontaneous flailing in all extremities 2. Nausea, vomiting 3. First-degree AV block 4. History of neuropathic pain 5. Intermittent episodes of dysuria 6. Hypophosphatemia: 1.4 Plan: * Differential diagnosis: cerebellar infarct vs medication side effect (Lyrica) vs late manifestation of Lyme disease. He is presenting with a bizarre presentation with very acute onset. Renal function appears to be normal hence the differential of Lyrica side effect is less likely at this time. However, we will start him on fluid hydration D5NS. Head CT and MRI were unremarkable for any intracranial pathology. Repeat MRI of the head shows areas of restricted diffusion in the right cerebellar hemisphere and vermis are increased compared to the prior study, consistent with evolving infarcts. Patient was transferred to telemetry for further monitoring. * Neuro Consult: We'll follow-up with neurology recommendations for further assessment of cerebellar vasculature and utility of dual antiplatelet therapy versus continuing on Plavix only. * Baseline first-degree AV block which was present on previous EKG in January 2016. No specific report of tick bite. Will obtain a Lyme MITCHELL and if positive follow up with Western blot, ID consult and utility of ceftriaxone. * Hydration with D5NS @ 100/hr, NPO at this time with swallow evaluation in the morning * Neurochecks every 4 hours * Aspiration precautions at this time * We'll restart Lyrica once patient is clinically stable to avoid potential of withdrawal seizures * Zofran for nausea and vomiting. * Hypophosphatemia: Levels are back to normal after recieving 1 dose of 15mMol Potassium phosphate. Problem List: 1. Vertigo 2. TIA (transient ischemic attack) 3. 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 Shingles neuropathic pain to left rib 2 months ago managed on Lyrica 50 mg in AM/100 mg in PM, intermittent episodes of dysuria with negative urine cultures currently managed on doxazosin 1 mg, YONAS unresolved S/P uvulectomy > 40yrs ago and currently on nocturnal CPAP (8 mmHg), L4/L5/S1 decompression and a fractured left ankle presenting with 1 day of acute onset of a humming sound in his head, weakness in all four extremities, uncontrolled flailing of both arms with movement (no such symptoms at rest), with lightheadedness and ataxia. Patient reports similar symptoms when having a migraine, but this is the worst it has ever been. Reports blurry vision as well that is not directional. Denies headache, changes in hearing, dysarthria, dysphagia, altered sensation. Today, patient complains of vertigo. He has vertical nystagmus bilaterally that does not extinguish. He reports nausea and vomiting. He arm weakness has improved. He is not able to tolerate PO due to weakness. MRI/MRA shows evolving cerebellar infarct. Patient is out of the window for tPA and no large vessel obstruction is noted. Plan - Transfer to telemetry - Continue Plavix, add Aspirin - Increase statin dose - Discontinue Gabapentin and anti-hypertensives, allow for permissive hypertension - Swallow eval - Neurology consult - Neuro checks - Continue remaining home medications - DVT PPx
--- NOTE | 2017-06-08 08:28 | NUR ---
PATIENT A&O X3. C/O BLE & BUE SPASM UPON MOVEMENT. C/O DIZZINESS WHEN MOVING NECK AND HEAD. PATIENT CONTINUES TO C/O OF SEEING DOUBLE VISION. PATIENT VOMITTED 150 MLS OF GREEN VOMITOUS. NO DISTRESS WAS NOTED. PHENERGEN IV WAS ADMINISTERED. THE INCOMING RN WAS MADE AWARE AND WILL ASSUME CARE.
[2017-06-08 08:34] LABS: ABSOLUTE BASOPHIL COUNT 0 /CUMM (0.0-0.2); ABSOLUTE EOSINOPHIL COUNT 0 /CUMM (0.0-0.7); ABSOLUTE GRANULOCYTE CT 5.5 /CUMM (1.4-6.5); ABSOLUTE LYMPH COUNT 0.9 /CUMM (1.2-3.4); ABSOLUTE MONOCYTE COUNT 0.7 /CUMM (0.10-0.60); BASOPHIL % 0.4 % (0.0-2.0); EOSINOPHIL % 0.1 % (0-5); GRANULOCYTE % 76.4 % (42.2-75.2); HEMATOCRIT 42.1 % (42-52); MEAN CORPUSCULAR HGB 30.6 PG (27.0-31.0); MEAN CORPUSCULAR HGB CONC 33.5 G/DL (33.0-37.0); MEAN CORPUSCULAR VOLUME 91.3 FL (80.0-94.0); MEAN PLATELET VOLUME 7.8 FL (7.4-10.4); PLATELET COUNT 186 /CUMM (130-400); RBC DISTRIBUTION WIDTH 14.6 % (11.5-14.5); RED BLOOD CELL CT 4.62 /CUMM (4.70-6.10); WHITE BLOOD CELL COUNT 7.2 /CUMM (4.8-10.8)
--- NOTE | 2017-06-08 09:20 | PN- Student ---
Subjective Subjective: Mr. Sargent was sleeping on and off overnight and continues to feel nauseous due to the vertigo. He says that he had a headache of 6/10 intensity in the morning. He has not eaten anything overnight and is still having difficult moving his limbs without chorea. He also notices mild dysarthria. He has not tried to walk since yesterday because when he did so his legs became weak and he feel to the floor. Objective Objective: Physical exam: Vitals: 6:34 am: Temp(oral): 98.2, RR:20, O2stat: 94RA, BP: 126/60, pulse: 66. General appearance: No palor or increased work of breathing. Patient appears to be drowsy but alert and oriented x 3 CV: Normal S1,S2, No R/M/G Lungs: CTA BL Neuro: EOM showed horizontal nystagmus bilaterly. Pupillary reflex was absent bilaterly. Mild dysartheria is present. CN11 and 12 are intact. 4/5 re dye hand strength and strength in all extermities. Results Results: Laboratory Tests 06/08/17 0728: Anion Gap 10, Estimated GFR > 60, BUN/Creatinine Ratio 15.7, Triglycerides 115, Cholesterol 140, LDL Cholesterol, Calc 73, HDL Cholesterol 44, Cholesterol/HDL Ratio 3, CBC w Diff NO MAN DIFF REQ, RBC 4.62 L, MCV 91.3, MCH 30.6, RDW 14.6 H, MPV 7.8, Gran % 76.4 H, Lymphocytes % 12.7 L, Monocytes % 10.4 H, Eosinophils % 0.1, Basophils % 0.4, Absolute Granulocytes 5.5, Absolute Lymphocytes 0.9 L, Absolute Monocytes 0.7 H, Absolute Eosinophils 0, Absolute Basophils 0, PUBS MCHC 33.5 06/08/17 0705: Lyme Disease Antibody Pending 06/07/17 191: Anion Gap 7, Estimated GFR > 60, BUN/Creatinine Ratio 15.0, Total Bilirubin 1.0, Direct Bilirubin 0.2, AST 31, ALT 40, Alkaline Phosphatase 52, Total Protein 6.1 L, Albumin 3.8, CBC w Diff NO MAN DIFF REQ, RBC 4.76, MCV 91.1, MCH 30.4, RDW 13.9, MPV 7.9, Gran % 86.6 H, Lymphocytes % 8.4 L, Monocytes % 4.8, Eosinophils % 0, Basophils % 0.2, Absolute Granulocytes 5.2, Absolute Lymphocytes 0.5 L, Absolute Monocytes 0.3, Absolute Eosinophils 0, Absolute Basophils 0, PUBS MCHC 33.3 06/07/17 1220: Urine Opiates Screen < 100.00, Methadone Screen 44, Barbiturate Screen < 60, Ur Phencyclidine Scrn < 6.00, Amphetamines Screen < 100, U Benzodiazepines Scrn < 85, Urine Cocaine Screen < 50, Urine Cannabis Screen < 5.00 06/07/17 0804: Anion Gap 13, Estimated GFR > 60, BUN/Creatinine Ratio 13.3, Glucose 102 H, Hemoglobin A1c 6.1 H, Calcium 10.1, Phosphorus 1.4 L, Magnesium 2.0, Total Bilirubin 0.9, AST 36, ALT 46, Alkaline Phosphatase 57, Troponin I < 0.01, Total Protein 6.7, Albumin 4.2, Globulin 2.5, Albumin/Globulin Ratio 1.7, TSH 1.960, Free T4 1.03, Total T3 1.68, Prolactin 31.6 H, Cortisol AM Sample 15.7, CBC w Diff NO MAN DIFF REQ, RBC 4.99, MCV 88.7, MCH 30.3, RDW 14.1, MPV 7.5, Gran % 43.5, Lymphocytes % 37.5, Monocytes % 16.3 H, Eosinophils % 2.2, Basophils % 0.5, Absolute Granulocytes 1.8, Absolute Lymphocytes 1.5, Absolute Monocytes 0.7 H, Absolute Eosinophils 0.1, Absolute Basophils 0, PUBS MCHC 34.1, Serum Alcohol < 10.0 CT w/out contrast: no intracranial pathology MRI: No evidence of acute territornial infract however there is evidence of minor vascular infracts. MRI with contrast: 1. The areas of restricted diffusion in the right cerebellar hemisphere and vermis are increased compared to the prior study, consistent with evolving infarcts. 2. There is a 4 mm area of hyperintensity demonstrated in the left suprasellar cistern. This is nonspecific has no correlate on other sequences. It may be consistent with partial voluming through the dorsum sellae. It could be further evaluated with dedicated MRI scan of the pituitary gland. 3. The right superior cerebellar artery is poorly demonstrated, but there is a prominent right AICA. No focal stenosis, aneurysm or vascular malformations are demonstrated elsewhere on the MR angiogram. Assessment/Plan Assessment: Mr. Sargent is a 71 yo male with a PMH of 2 TIAs 2 years ago managed with clopedigril, migranes, shingles neuropathic pain, lumbar sciatica, YONAS, and dysuria with negative cultures, presenting with BL lower limb weakness, right arm chorea, and 4/5 limb strength in all extremities. He also has diplopia, nystagmus, and vertigo. MRI with contrast performed this morning was consistent with a cerebellar stroke. Plan: 1. Cerebellar stroke: MRI and CT without contrast were negative in the ED. -repeated MRI with contrast showed cerebellar stroke -Neuorology consulted -admitted to telemetry 2. Prior health conditions: TIAs, shingles neuopathic pain, dysuria with negative cultures,HTN Contiue home medications: Clopidogrel Bisulfate (Clopidogrel) 75 MG TABLET 1 TAB PO DAILY BLOOD THINNER (Reported) Doxazosin Mesylate 2 MG TABLET 1 TAB PO DAILY HTN (Reported) Gabapentin (Neurontin) 300 MG CAPSULE 1 CAP PO QPM PAIN (Reported) Pregabalin (Lyrica) 100 MG CAPSULE 1 CAP PO TID NEUROPATHY (Reported) Simvastatin (Zocor*) 40 MG TABLET 1 TAB PO QPM CHOLESTEROL (Reported) 3. Code status: Full code
--- NOTE | 2017-06-08 12:31 | MRI REPORT ---
EXAMINATION: MR BRAIN WITHOUT AND WITH CONTRAST MR ANGIOGRAPHY OF THE HEAD WITHOUT CONTRAST CLINICAL INFORMATION: Nausea, vertigo and dysmetria. Assess for cerebellar artery occlusion. COMPARISON: MRI scan and CT scan obtained 06/07/2015. TECHNIQUE: Multiplanar, multisequence imaging of the brain was obtained without and with intravenous contrast. 20 mL OptiMARK. 3-D [id number] MR angiography was performed. Multiple 3-D reformatted images were processed on the technologist workstation. FINDINGS: MRI BRAIN: There are areas of restricted diffusion in the right anterior cerebellar hemisphere extending into the right cerebellar vermis, more prominent compared to prior imaging, consistent with evolving infarcts. There is no abnormal enhancement noted following intravenous contrast ministration in these regions. The ventricles are normal in size. No mass effect or midline shift is seen. No brain parenchymal signal abnormality is noted on the available other sequences (axial and coronal T1 postcontrast). There is a small area of hyperintensity in the left suprasellar cistern which measures 0.4 cm (image 10/23, sequence 4). No correlate is seen on the other sequences, nor on the prior MRI scan. No other areas of abnormal enhancement are demonstrated. The mastoid air cells and paranasal sinuses are well-aerated. MRA HEAD: In the anterior circulation, the distal internal carotid arteries within the neck appear normal. The intracranial internal carotid arteries and their bifurcations appear normal. The middle and anterior cerebral arteries bilaterally demonstrate normal caliber with no evidence of focal stenosis, aneurysm or vascular malformation. The anterior communicating artery is normal. In the posterior circulation, the left vertebral artery is mildly dominant. The vertebral arteries intradurally have uniform caliber. There is a prominent left PICA. The basilar artery appears normal. The left superior cerebellar artery is well visualized. On the right, there is a moderately prominent AICA with no definite superior cerebellar artery arising off the basilar artery. The posterior cerebral arteries have normal caliber; the left posterior cerebral artery arises primarily off the anterior circulation which is a normal variant. IMPRESSION: 1. The areas of restricted diffusion in the right cerebellar hemisphere and vermis are increased compared to the prior study, consistent with evolving infarcts. 2. There is a 4 mm area of hyperintensity demonstrated in the left suprasellar cistern. This is nonspecific has no correlate on other sequences. It may be consistent with partial voluming through the dorsum sellae. It could be further evaluated with dedicated MRI scan of the pituitary gland. 3. The right superior cerebellar artery is poorly demonstrated, but there is a prominent right AICA. No focal stenosis, aneurysm or vascular malformations are demonstrated elsewhere on the MR angiogram.
[2017-06-08 14:22] VITALS: BP 154/92
--- NOTE | 2017-06-08 15:20 | Admission Certification ---
Admission Certification Certification Statement - As attending physician, I certify that at the time of - admission, based on clinical presentation, severity of - symptoms, need for further diagnostic testing and - therapeutic interventions, and risk of adverse outcomes - without in-hospital treatment, in my clinical assessment, - this patient requires an acute hospital stay for a minimum - of two nights or longer. I have also considered psychsocial - factors such as support system, advanced age, financial - issues, cognitive issues, and failed out-patient treatments, - past re-admission history, safety of patient, and lack of - compliance as applicable. Specific rationale supporting this admission is: Acute onset ataxia, chorea, diplopia
--- NOTE | 2017-06-08 15:43 | Event Note ---
Event Note Event Note: SITUATION: * Continued right sided dysmmetria * New onset nystagmus * MRI brain with unremarkable findings from the previous day BRIEF: * In the setting of persistent/worsening clinical presentation but an unremarkable MRI, I consulted with the radiologist Dr Hamilton to have a second read on the brain MRI from admission * Addendum to previous study: There is a subtle focus of increased signal intensity within the right cerebellum on the DWI sequence. This finding may represent a manifestation of acute ischemia within the vascularity territory of the right superior cerebellar artery particularly in the clinical setting of right-sided dysmetria. This critical result was discussed with Ole Samaniego MD at 06/08/2017 9:45 AM and it was ascertained that the content and urgency of the report was understood at the time of direct communication. * In the setting of the above findings, we obtained a repeat MRI with contrast and MRA IMPRESSION: 1. The areas of restricted diffusion in the right cerebellar hemisphere and vermis are increased compared to the prior study, consistent with evolving infarcts. 2. There is a 4 mm area of hyperintensity demonstrated in the left suprasellar cistern. This is nonspecific has no correlate on other sequences. It may be consistent with partial voluming through the dorsum sellae. It could be further evaluated with dedicated MRI scan of the pituitary gland. 3. The right superior cerebellar artery is poorly demonstrated, but there is a prominent right AICA. No focal stenosis, aneurysm or vascular malformations are demonstrated elsewhere on the MR angiogram. A/R: * We will transfer the patient to telemetry for every 2 neurochecks, aspirin 325 * Follow-up recommendations from neurology * PT and OT once medically stable
--- NOTE | 2017-06-08 19:42 | Cons- Neurology ---
General Information and HPI Consulting Request Date of Consult: 06/08/17 Requested By: JUAN DIEGO BURCIAGA MD Reason for Consult: R cerebellar ischemic stroke Source of Information: patient, EMR, MD Exam Limitations: no limitations History of Present Illness: 71-year-old right-handed man recently placed on Lyrica for left-sided thoracic pain thought to be due to postherpetic neuralgia, though he never had a rash, followed by a neurologist in [place], managed with pregabalin. States he awoke yesterday around 6:30 in the morning and was able to walk to and from the bathroom. When he got back into the bed, he states that he developed sudden onset buzzing in his ears, followed by involuntary jerking of his head and both arms and legs, although he did not lose consciousness. He called out to his who is in the next room and subsequently came to the ED. He denied diplopia. He feels as if he is still symptomatic in all 4 extremities at this time, although he does admit that the right side is much worse and when he tries to sit at the edge of the bed he is unable to maintain his balance. He has not tried to ambulate. He reports a family history of stroke in his brother at age 40 (states occurred after a vigorous coughing spell,? Dissection; subsequently recovered) The patient has a remote history of TIA for which she has been maintained on Plavix and statin therapy. He states he also has an implanted loop recorder which has not revealed in arrhythmia to date. 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 Allergies/Medications Allergies: Coded Allergies: NO KNOWN ALLERGIES (01/27/16) Home Med List: Clopidogrel Bisulfate (Clopidogrel) 75 MG TABLET 1 TAB PO DAILY BLOOD THINNER (Reported) Doxazosin Mesylate 2 MG TABLET 0.5 TAB PO DAILY Urinary symptoms (Reported) Pregabalin (Lyrica) 100 MG CAPSULE 1 CAP PO BID Neuropathy (Reported) Simvastatin (Zocor*) 40 MG TABLET 1 TAB PO QPM CHOLESTEROL (Reported) Current Medications: Current Medications Sig/Mckay Start time Last Medication Dose Route Stop Time Status Admin Acetaminophen 1,000 MG BID 06/08 1400 AC 06/08 IV 1709 Acetaminophen 650 MG Q6P PRN 06/07 1630 AC PO Aspirin 325 MG ONCE ONE 06/08 1315 DC 06/08 PO 06/08 1316 1428 Atorvastatin Calcium 80 MG 1700 06/08 1700 AC 06/08 PO 1709 Atorvastatin Calcium 10 MG 1700 06/07 1700 DC PO Clopidogrel Bisulfate 75 MG DAILY 06/08 1000 AC PO Dextrose/Sodium 1,000 ML Q10H 06/07 1845 AC 06/08 Chloride IV 1426 Enoxaparin Sodium 40 MG DAILY 06/07 1626 AC 06/08 SC 1432 Oxycodone/ 1 TAB Q6P PRN 06/07 1630 AC 06/08 Acetaminophen PO 1429 Oxycodone/ 2 TAB Q6P PRN 06/07 1630 DC Acetaminophen PO Patient Medication 1 ED .STK-MED ONE 06/08 1400 DC Teaching ED 06/08 1401 Potassium Phosphate 15 mMol ONE ONE 06/07 2245 DC 06/07 Sodium Chloride 250 ML IV 06/08 0248 2238 Potassium Phosphate 15 mMol ONE ONE 06/07 2015 CAN Sodium Chloride 250 ML IV 06/08 0018 Promethazine HCl 25 MG Q4P PRN 06/07 1815 AC 06/08 IV 06/14 1814 0715 Review of Systems Review of Systems: REVIEW OF SYSTEMS: (-) = negative / normal blank = not discussed Neurologic: see HPI Eyes: (-) ENT: (-) Constitutional: (-) CV: (-) Respiratory: (-) /Renal: (-) Musculoskeletal: (-) Skin: (-) Psychiatric: (-) Heme: (-) GI: (-) Allergy/Immune: (-) Endocrine: (-) Other: (-) Past History Travel History Traveled to [place] past 21 day No Medical History Blood Transfusion Hx: No Neurological: TIA, shingles cerebellar stroke EENT: NONE Cardiovascular: NONE Respiratory: NONE Gastrointestinal: NONE Hepatic: NONE Renal: NONE Musculoskeletal: osteoarthritis, sciatica Psychiatric: NONE Endocrine: NONE Blood Disorders: NONE Cancer(s): NONE 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 Psychosocial History Where Do You Live? 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 Exam & Diagnostic Data Vital Signs and I&O Vital Signs Date Time Temp Pulse Resp B/P B/P Pulse O2 O2 Flow FiO2 Mean Ox Delivery Rate 06/08 1422 98.7 64 18 154/92 94 Room Air 06/08 0620 98.2 66 20 126/60 94 06/08 0000 CPAP 06/07 2225 97.4 80 20 146/86 95 Room Air 06/074 76 18 150/84 95 Room Air Room Air Intake & Output 06/08 1600 06/08 0800 06/08 0000 Intake Total 0 800 Output Total 550 450 300 Balance -550 350 -300 Intake, IV 800 Intake, Oral 0 Output, Urine 550 450 300 Patient 215 lb Weight Weight Reported by Patient Measurement Method Physical Exam: Sitting up in bed, awake, alert, oriented, in no acute distress Head: Normocephalic and atraumatic Neck: Supple, no bruits Heart: Regular rate and rhythm Extremities: Mild right hand edema intact peripheral pulses Neurologic exam: Alert and oriented 3 Speech fluent mildly dysarthric Intact naming repetition and comprehension and general fund of knowledge Cranial nerves: Visual le full to confrontation Fundi benign Pupils equal round and reactive to light Extraocular movements full with no nystagmus Facial sensation intact Intact muscles of mastication and facial expression Hearing intact to finger rub Symmetric elevation of the uvula and palate Midline tongue protrusion Symmetric shoulder shrug Motor: Normal muscle bulk tone and strength No left-sided limb ataxia Moderate right arm and leg ataxia on finger-nose and [id number] testing Sensation of light touch and joint position and pinprick intact Deep tendon reflexes absent on the right trace to absent on the left Plantar responses flexor Gait not tested Last 48 Hours of Lab Results: Laboratory Tests 06/08 06/08 0728 0705 Chemistry Sodium (137 - 145 mmol/L) 142 Potassium (3.5 - 5.1 mmol/L) 4.1 Chloride (98 - 107 mmol/L) 108 H Carbon Dioxide (22 - 30 mmol/L) 24 Anion Gap (5 - 16) 10 BUN (9 - 20 mg/dL) 11 Creatinine (0.7 - 1.2 mg/dL) 0.7 Estimated GFR (>60 ml/min) > 60 BUN/Creatinine Ratio (7 - 25 %) 15.7 Phosphorus (2.5 - 4.5 mg/dL) 2.5 Magnesium (1.6 - 2.3 mg/dL) 2.0 Triglycerides (<150 mg/dL) 115 Cholesterol (< 200 MG/DL) 140 LDL Cholesterol, Calc (65 - 129 mg/dL) 73 HDL Cholesterol (40 - 60 mg/dL) 44 Cholesterol/HDL Ratio (0.00 - 4.88 %) 3 Hematology CBC w Diff NO MAN DIFF REQ WBC (4.8 - 10.8 /CUMM) 7.2 RBC (4.70 - 6.10 /CUMM) 4.62 L Hgb (14.0 - 18.0 G/DL) 14.1 Hct (42 - 52 %) 42.1 MCV (80.0 - 94.0 FL) 91.3 MCH (27.0 - 31.0 PG) 30.6 RDW (11.5 - 14.5 %) 14.6 H Plt Count (130 - 400 /CUMM) 186 MPV (7.4 - 10.4 FL) 7.8 Gran % (42.2 - 75.2 %) 76.4 H Lymphocytes % (20.5 - 51.1 %) 12.7 L Monocytes % (1.7 - 9.3 %) 10.4 H Eosinophils % (0 - 5 %) 0.1 Basophils % (0.0 - 2.0 %) 0.4 Absolute Granulocytes (1.4 - 6.5 /CUMM) 5.5 Absolute Lymphocytes (1.2 - 3.4 /CUMM) 0.9 L Absolute Monocytes (0.10 - 0.60 /CUMM) 0.7 H Absolute Eosinophils (0.0 - 0.7 /CUMM) 0 Absolute Basophils (0.0 - 0.2 /CUMM) 0 PUBS MCHC (33.0 - 37.0 G/DL) 33.5 Serology Lyme Disease Antibody Pending 06/07 06/07 1910 1220 Chemistry Sodium (137 - 145 mmol/L) 140 Potassium (3.5 - 5.1 mmol/L) 4.5 Chloride (98 - 107 mmol/L) 108 H Carbon Dioxide (22 - 30 mmol/L) 25 Anion Gap (5 - 16) 7 BUN (9 - 20 mg/dL) 12 Creatinine (0.7 - 1.2 mg/dL) 0.8 Estimated GFR (>60 ml/min) > 60 BUN/Creatinine Ratio (7 - 25 %) 15.0 Total Bilirubin (0.2 - 1.3 mg/dL) 1.0 Direct Bilirubin (< 0.4 mg/dL) 0.2 AST (17 - 59 U/L) 31 ALT (21 - 72 U/L) 40 Alkaline Phosphatase (< 127 U/L) 52 Total Protein (6.3 - 8.2 g/dL) 6.1 L Albumin (3.5 - 5.0 g/dL) 3.8 Hematology CBC w Diff NO MAN DIFF REQ WBC (4.8 - 10.8 /CUMM) 6.0 RBC (4.70 - 6.10 /CUMM) 4.76 Hgb (14.0 - 18.0 G/DL) 14.4 Hct (42 - 52 %) 43.4 MCV (80.0 - 94.0 FL) 91.1 MCH (27.0 - 31.0 PG) 30.4 RDW (11.5 - 14.5 %) 13.9 Plt Count (130 - 400 /CUMM) 163 MPV (7.4 - 10.4 FL) 7.9 Gran % (42.2 - 75.2 %) 86.6 H Lymphocytes % (20.5 - 51.1 %) 8.4 L Monocytes % (1.7 - 9.3 %) 4.8 Eosinophils % (0 - 5 %) 0 Basophils % (0.0 - 2.0 %) 0.2 Absolute Granulocytes (1.4 - 6.5 /CUMM) 5.2 Absolute Lymphocytes (1.2 - 3.4 /CUMM) 0.5 L Absolute Monocytes (0.10 - 0.60 /CUMM) 0.3 Absolute Eosinophils (0.0 - 0.7 /CUMM) 0 Absolute Basophils (0.0 - 0.2 /CUMM) 0 PUBS MCHC (33.0 - 37.0 G/DL) 33.3 Toxicology Urine Opiates Screen (>2000 NG/ML) < 100.00 Methadone Screen (>300 NG/ML) 44 Barbiturate Screen (>200 NG/ML) < 60 Ur Phencyclidine Scrn (>25 NG/ML) < 6.00 Amphetamines Screen (>1000 NG/ML) < 100 U Benzodiazepines Scrn (>200 NG/ML) < 85 Urine Cocaine Screen (>300 NG/ML) < 50 Urine Cannabis Screen (>50 NG/ML) < 5.00 0713 0804 Chemistry Sodium (137 - 145 mmol/L) 144 Potassium (3.5 - 5.1 mmol/L) 3.6 Chloride (98 - 107 mmol/L) 106 Carbon Dioxide (22 - 30 mmol/L) 25 Anion Gap (5 - 16) 13 BUN (9 - 20 mg/dL) 12 Creatinine (0.7 - 1.2 mg/dL) 0.9 Estimated GFR (>60 ml/min) > 60 BUN/Creatinine Ratio (7 - 25 %) 13.3 Glucose (65 - 99 mg/dL) 102 H Hemoglobin A1c (4.2 - 5.8 %) 6.1 H Calcium (8.4 - 10.2 mg/dL) 10.1 Phosphorus (2.5 - 4.5 mg/dL) 1.4 L Magnesium (1.6 - 2.3 mg/dL) 2.0 Total Bilirubin (0.2 - 1.3 mg/dL) 0.9 AST (17 - 59 U/L) 36 ALT (21 - 72 U/L) 46 Alkaline Phosphatase (< 127 U/L) 57 Troponin I (<0.11 ng/ml) < 0.01 Total Protein (6.3 - 8.2 g/dL) 6.7 Albumin (3.5 - 5.0 g/dL) 4.2 Globulin (1.9 - 4.2 gm/dL) 2.5 Albumin/Globulin Ratio (1.1 - 2.2 %) 1.7 TSH (0.270 - 4.200 uIU/mL) 1.960 Free T4 (0.78 - 2.44 ng/dL) 1.03 Total T3 (0.97 - 1.69 ng/mL) 1.68 Prolactin (3.7 - 17.9 ng/mL) 31.6 H Cortisol AM Sample (4.46 - 22.7 ug/dL) 15.7 Hematology CBC w Diff NO MAN DIFF REQ WBC (4.8 - 10.8 /CUMM) 4.1 L RBC (4.70 - 6.10 /CUMM) 4.99 Hgb (14.0 - 18.0 G/DL) 15.1 Hct (42 - 52 %) 44.3 MCV (80.0 - 94.0 FL) 88.7 MCH (27.0 - 31.0 PG) 30.3 RDW (11.5 - 14.5 %) 14.1 Plt Count (130 - 400 /CUMM) 202 MPV (7.4 - 10.4 FL) 7.5 Gran % (42.2 - 75.2 %) 43.5 Lymphocytes % (20.5 - 51.1 %) 37.5 Monocytes % (1.7 - 9.3 %) 16.3 H Eosinophils % (0 - 5 %) 2.2 Basophils % (0.0 - 2.0 %) 0.5 Absolute Granulocytes (1.4 - 6.5 /CUMM) 1.8 Absolute Lymphocytes (1.2 - 3.4 /CUMM) 1.5 Absolute Monocytes (0.10 - 0.60 /CUMM) 0.7 H Absolute Eosinophils (0.0 - 0.7 /CUMM) 0.1 Absolute Basophils (0.0 - 0.2 /CUMM) 0 PUBS MCHC (33.0 - 37.0 G/DL) 34.1 Toxicology Serum Alcohol (<10 MG/DL) < 10.0 Imaging/Other Studies: PATIENT: CONSTANTINE MCWILLIAMS PRESENT AGE: 71 PATIENT ACCOUNT NO: [id number] : 47 LOCATION: 1NO ORDERING PHYSICIAN: ADOLFO LOYA MD SERVICE DATE: 06/08/17- EXAM TYPE: MRI - MRA-HEAD; MRI-HEAD W & W/O FELICITA EXAMINATION: MR BRAIN WITHOUT AND WITH CONTRAST MR ANGIOGRAPHY OF THE HEAD WITHOUT CONTRAST CLINICAL INFORMATION: Nausea, vertigo and dysmetria. Assess for cerebellar artery occlusion. COMPARISON: MRI scan and CT scan obtained 06/07/2015. TECHNIQUE: Multiplanar, multisequence imaging of the brain was obtained without and with intravenous contrast. 20 mL OptiMARK. 3-D [id number] MR angiography was performed. Multiple 3-D reformatted images were processed on the technologist workstation. FINDINGS: MRI BRAIN: There are areas of restricted diffusion in the right anterior cerebellar hemisphere extending into the right cerebellar vermis, more prominent compared to prior imaging, consistent with evolving infarcts. There is no abnormal enhancement noted following intravenous contrast ministration in these regions. The ventricles are normal in size. No mass effect or midline shift is seen. No brain parenchymal signal abnormality is noted on the available other sequences (axial and coronal T1 postcontrast). There is a small area of hyperintensity in the left suprasellar cistern which measures 0.4 cm (image 10/23, sequence 4). No correlate is seen on the other sequences, nor on the prior MRI scan. No other areas of abnormal enhancement are demonstrated. The mastoid air cells and paranasal sinuses are well-aerated. MRA HEAD: In the anterior circulation, the distal internal carotid arteries within the neck appear normal. The intracranial internal carotid arteries and their bifurcations appear normal. The middle and anterior cerebral arteries bilaterally demonstrate normal caliber with no evidence of focal stenosis, aneurysm or vascular malformation. The anterior communicating artery is normal. In the posterior circulation, the left vertebral artery is mildly dominant. The vertebral arteries intradurally have uniform caliber. There is a prominent left PICA. The basilar artery appears normal. The left superior cerebellar artery is well visualized. On the right, there is a moderately prominent AICA with no definite superior cerebellar artery arising off the basilar artery. The posterior cerebral arteries have normal caliber; the left posterior cerebral artery arises primarily off the anterior circulation which is a normal variant. IMPRESSION: 1. The areas of restricted diffusion in the right cerebellar hemisphere and vermis are increased compared to the prior study, consistent with evolving infarcts. 2. There is a 4 mm area of hyperintensity demonstrated in the left suprasellar cistern. This is nonspecific has no correlate on other sequences. It may be consistent with partial voluming through the dorsum sellae. It could be further evaluated with dedicated MRI scan of the pituitary gland. 3. The right superior cerebellar artery is poorly demonstrated, but there is a prominent right AICA. No focal stenosis, aneurysm or vascular malformations are demonstrated elsewhere on the MR angiogram. DICTATED BY: ANDERSON MITCHELL MD DATE/TIME DICTATED:06/08/171202 WILDLIFE PROTECTOR:CHELLE DATE/TIME TRANSCRIBED:06/08/171202 CONFIDENTIAL, DO NOT COPY WITHOUT APPROPRIATE AUTHORIZATION. <Electronically signed in Other Vendor System> SIGNED BY: ANDERSON MITCHELL MD 06/08/17 1231 Assessment/Plan Assessment: Acute infarcts of the right cerebellar hemisphere and right vermis, resulting respectively in right-sided limb ataxia and truncal ataxia Stroke risks include family history and hypertension. Currently lipids are well controlled on statin, with an LDL of 73 According to the patient, extended loop recorder monitoring has been unremarkable to date. Recommendations: Continue dual antiplatelet therapy for now Check an echocardiogram Continue high intensity statin DVT prophylaxis Speech therapy swallow assessment Consult physical and occupational therapy He will likely benefit from inpatient rehabilitation; consider the [facility] Consult Acknowledgment - Thank you for your consult request.
[2017-06-08 23:24] VITALS: BP 128/84
[2017-06-09 06:48] VITALS: BP 120/80
[2017-06-09 08:45] LABS: ABSOLUTE BASOPHIL COUNT 0 /CUMM (0.0-0.2); ABSOLUTE EOSINOPHIL COUNT 0.1 /CUMM (0.0-0.7); ABSOLUTE GRANULOCYTE CT 2.9 /CUMM (1.4-6.5); ABSOLUTE LYMPH COUNT 1.2 /CUMM (1.2-3.4); ABSOLUTE MONOCYTE COUNT 0.6 /CUMM (0.10-0.60); BASOPHIL % 0.6 % (0.0-2.0); EOSINOPHIL % 2.3 % (0-5); GRANULOCYTE % 58.7 % (42.2-75.2); HEMATOCRIT 41.2 % (42-52); MEAN CORPUSCULAR HGB 30.7 PG (27.0-31.0); MEAN CORPUSCULAR HGB CONC 33.8 G/DL (33.0-37.0); MEAN CORPUSCULAR VOLUME 90.8 FL (80.0-94.0); MEAN PLATELET VOLUME 7.8 FL (7.4-10.4); PLATELET COUNT 177 /CUMM (130-400); RBC DISTRIBUTION WIDTH 14.9 % (11.5-14.5); RED BLOOD CELL CT 4.54 /CUMM (4.70-6.10); WHITE BLOOD CELL COUNT 4.9 /CUMM (4.8-10.8)
--- NOTE | 2017-06-09 13:01 | PN- Housestaff ---
ARTUR VALLES,GERRI 06/09/17 1210: Subjective Follow-up For: cerebellar ischemic stroke Complaints: no complaints Tele-Events Since Last Visit: Overnight patient was in sinus bradycardia with first-degree AV block MO interval 0.26-0.28 rates from 40-56. Nurse made aware. Subjective: She was seen and examined bedside. He is having a bit of dysmetria but when he moves his arms slowly he is able to control. He notes it's a little bit difficult to lift his legs but some of this he attributes to left foot operation for sciatica. He notes several episodes of vomiting yesterday but today notes that he is better and not nauseous at all. He says that his speech is getting better. He had some double vision yesterday that is resolving today. Review of Systems Constitutional: Reports: weakness. EENTM: Reports: double vision. Cardiovascular: Reports: no symptoms. Respiratory: Reports: no symptoms. Gastrointestinal: Reports: no symptoms. Genitourinary: Reports: no symptoms. Musculoskeletal: Reports: no symptoms. Skin: Reports: no symptoms. Neurological/Psychological: Reports: ataxia, numbness, weakness. Denies: headache. Hematologic/Endocrine: Reports: no symptoms. Immunologic/Allergic: Reports: no symptoms. Objective Last 24 Hrs of Vital Signs/I&O Vital Signs Date Time Temp Pulse Resp B/P B/P Pulse O2 O2 Flow FiO2 Mean Ox Delivery Rate 06/09 0648 97.7 57 20 120/80 96 CPAP 06/08 2324 98.4 61 20 128/84 95 CPAP 06/08 1422 98.7 64 18 154/92 94 Room Air Intake & Output 06/09 1600 06/09 0800 06/09 0000 Intake Total 900 650 Output Total 200 850 Balance 700 -200 Intake, IV 800 500 Intake, Oral 100 150 Output, Urine 200 850 Patient 215 lb Weight Physical Exam General Appearance: Alert, Oriented X3, Cooperative, No Acute Distress Skin: No Rashes, No Breakdown, No Significant Lesion Skin Temp/Moisture Exam: Warm/Dry Sepsis Skin Exam (color): Normal for Ethnicity HEENT: Atraumatic, PERRLA, EOMI, Mucous Membr. moist/pink Neck: Supple Cardiovascular: Regular Rate, Normal S1, Normal S2, No Murmurs, Gallops, Rubs Lungs: Clear to Auscultation, Normal Air Movement Abdomen: Normal Bowel Sounds, Soft, No Tenderness, No Hepatospenomegaly, No Masses Neurological: Normal Speech, Strength at 5/5 X4 Ext, Normal Tone, Sensation Intact, Cranial Nerves 3-12 NL Extremities: No Clubbing, No Cyanosis, No Edema, Normal Pulses, No Tenderness/ Swelling Vascular: Normal Pulses, Pulses Symmetrical Sepsis Peripheral Pulse Location: Radial Sepsis Peripheral Pulse Exam: Normal Current Medications: Current Medications Sig/Mckay Start time Last Medication Dose Route Stop Time Status Admin Acetaminophen 1,000 MG BID 06/08 1400 AC 06/08 IV 2110 Acetaminophen 650 MG Q6P PRN 06/07 1630 AC PO Aspirin 81 MG DAILY 06/09 1000 AC 06/09 PO 0941 Aspirin 325 MG ONCE ONE 06/08 1315 DC 06/08 PO 06/08 1316 1428 Atorvastatin Calcium 80 MG 1700 06/08 1700 AC 06/08 PO 1709 Atorvastatin Calcium 10 MG 1700 06/07 1700 DC PO Clopidogrel Bisulfate 75 MG DAILY 06/08 1000 AC 06/09 PO 0941 Dextrose/Sodium 1,000 ML Q10H 06/07 1845 AC 06/09 Chloride IV 0600 Enoxaparin Sodium 40 MG DAILY 06/07 1626 AC 06/09 SC 0941 Oxycodone/ 1 TAB Q6P PRN 06/07 1630 AC 06/08 Acetaminophen PO 1429 Oxycodone/ 2 TAB Q6P PRN 06/07 1630 DC Acetaminophen PO Patient Medication 1 ED .STK-MED ONE 06/08 1400 DC Teaching ED 06/08 1401 Promethazine HCl 25 MG Q4P PRN 06/07 1815 AC 06/08 IV 06/14 1814 0715 Last 24 Hrs of Lab/Isaaih Results Last 24 Hrs of Labs/Mics: Laboratory Tests 06/09/17 0605: Anion Gap 7, Estimated GFR > 60, BUN/Creatinine Ratio 16.3, CBC w Diff NO MAN DIFF REQ, RBC 4.54 L, MCV 90.8, MCH 30.7, RDW 14.9 H, MPV 7.8, Gran % 58.7, Lymphocytes % 25.4, Monocytes % 13.0 H, Eosinophils % 2.3, Basophils % 0.6, Absolute Granulocytes 2.9, Absolute Lymphocytes 1.2, Absolute Monocytes 0.6, Absolute Eosinophils 0.1, Absolute Basophils 0, PUBS MCHC 33.8 Orders ECHO Findings: Echo is ordered Radiology Findings: IMPRESSION: 1. The areas of restricted diffusion in the right cerebellar hemisphere and vermis are increased compared to the prior study, consistent with evolving infarcts. 2. There is a 4 mm area of hyperintensity demonstrated in the left suprasellar cistern. This is nonspecific has no correlate on other sequences. It may be consistent with partial voluming through the dorsum sellae. It could be further evaluated with dedicated MRI scan of the pituitary gland. 3. The right superior cerebellar artery is poorly demonstrated, but there is a prominent right AICA. No focal stenosis, aneurysm or vascular malformations are demonstrated elsewhere on the MR angiogram. Assessment/Plan Assessment: Assessment: 71-year-old gentleman with a PMH of TIAs 2 approximately 2 years ago, a follow- up loop recorder unremarkable approximately (Dr. Hudson bar roller at [facility]) , shingles in 1970s, ?? Shingles neuropathic pain to left rib 2 months ago managed on Lyrica 50 mg in AM/100 mg in PM, intermittent episodes of dysuria with negative urine cultures currently managed on doxazosin 1 mg, YONAS unresolved S/P uvulectomy > 40yrs ago and currently on nocturnal CPAP (8 mmHg), L4/L5/S1 decompression and a fractured left ankle who was BIBA after sudden onset generalized body weakness and limb twitching. Symptoms started abruptly after waking up with what he described as a humming sound in his head/ears, subsequent uncontrollable generalized limb movement/ spasms, generalized body weakness and a brief episode of inability to speak. On arrival in the ED he had 3 episodes of nonbloody vomitus triggered by movement/ light and a headache localized around the right frontal region. The only recent change to medications include increase of Lyrica from 50mg in AM/ 100mg in PM up to 100 mg BID. Patient endorses occasional corticosteroids injections in the lumbar region, last one in the spring 2016. VS on admission: BP 155/84, HR 93, RR 18, SPO2 98% on RA, T 98.9 Pertinent labs on admission: WBC 4.1, 16.3% monocytes, H&H 15.1/44.3, platelets 202K, sodium 144, potassium 3.6, chloride 106, bicarbonate 25, BUN/CR 12/0.9, glucose 102 Urine tox: Unremarkable Problem list: 1. Acute onset generalized weakness with spontaneous flailing in all extremities 2. Nausea, vomiting 3. First-degree AV block 4. History of neuropathic pain 5. Intermittent episodes of dysuria 6. Hypophosphatemia: 1.4 7. HLD Plan: * Differential diagnosis: cerebellar infarct vs medication side effect (Lyrica) vs late manifestation of Lyme disease. He is presenting with a bizarre presentation with very acute onset. Renal function appears to be normal hence the differential of Lyrica side effect is less likely at this time. However, we will start him on fluid hydration D5NS. Head CT and MRI were unremarkable for any intracranial pathology. Repeat MRI of the head shows areas of restricted diffusion in the right cerebellar hemisphere and vermis are increased compared to the prior study, consistent with evolving infarcts. Patient was transferred to telemetry for further monitoring. * Neuro Consult: As per neurology continue dual antiplatelet therapy for now and check echocardiogram. Continue high intensity statin. Consult physical and occupational therapy, he will likely benefit from inpatient rehabilitation. * Permissive hypertension. Antihypertensives as needed only. * Patient passed swallow assessment and is now on heart healthy diet chopped and with thin liquids. * Baseline first-degree AV block which was present on previous EKG in January 2016. No specific report of tick bite. Will obtain a Lyme MITCHELL and if positive follow up with Western blot, ID consult and utility of ceftriaxone. * Hydration with D5NS @ 100/hr, NPO at this time with swallow evaluation in the morning * Neurochecks every 4 hours * Aspiration precautions at this time * We'll restart Lyrica once patient is clinically stable to avoid potential of withdrawal seizures * Zofran for nausea and vomiting. Patient has not experienced nausea or vomiting today. * Hypophosphatemia: Levels are back to normal after recieving 1 dose of 15mMol Potassium phosphate. Now phosphorus is at 2.5. Full code Lovenox for DVT prophylaxis and Alps Problem List: 1. TIA (transient ischemic attack) 2. Cerebellar stroke Pain Ratin Pain Location: NA Pain Goal: Remain pain free Pain Plan: NA Tomorrow's Labs & Rationales: . LINH VALLES,BRIGITTE 06/09/17 1310: Attending MD Review Statement Attending Statement Attending MD Statement: examined this patient, discuss w/resident/PA/INCUBATOR TENDER, agreed w/resident/PA/INCUBATOR TENDER, discussed with family, reviewed EMR data (avail), discussed with nursing, discussed with case mgmt, reviewed images, amended to note Attending Assessment/Plan: Patient seen and examined, , feels almost the same. This am he claims that he had some flailing movements of his arm. Later I went back again and had a lengthy discussion with him and his as they lots of concerns. Vital Signs Date Time Temp Pulse Resp B/P B/P Pulse O2 O2 Flow FiO2 Mean Ox Delivery Rate 06/09 0648 97.7 57 20 120/80 96 CPAP 06/08 2324 98.4 61 20 128/84 95 CPAP 06/08 1422 98.7 64 18 154/92 94 Room Air onn exam; aox3, nad. cv; s1,s2, rrr resp; clear abd; soft, nt, bs+ ext; no edema. strength is full. Laboratory Tests 06/09 605 Chemistry Sodium (137 - 145 mmol/L) 145 Potassium (3.5 - 5.1 mmol/L) 3.9 Chloride (98 - 107 mmol/L) 110 H Carbon Dioxide (22 - 30 mmol/L) 29 Anion Gap (5 - 16) 7 BUN (9 - 20 mg/dL) 13 Creatinine (0.7 - 1.2 mg/dL) 0.8 Estimated GFR (>60 ml/min) > 60 BUN/Creatinine Ratio (7 - 25 %) 16.3 Hematology CBC w Diff NO MAN DIFF REQ WBC (4.8 - 10.8 /CUMM) 4.9 RBC (4.70 - 6.10 /CUMM) 4.54 L Hgb (14.0 - 18.0 G/DL) 13.9 L Hct (42 - 52 %) 41.2 L MCV (80.0 - 94.0 FL) 90.8 MCH (27.0 - 31.0 PG) 30.7 RDW (11.5 - 14.5 %) 14.9 H Plt Count (130 - 400 /CUMM) 177 MPV (7.4 - 10.4 FL) 7.8 Gran % (42.2 - 75.2 %) 58.7 Lymphocytes % (20.5 - 51.1 %) 25.4 Monocytes % (1.7 - 9.3 %) 13.0 H Eosinophils % (0 - 5 %) 2.3 Basophils % (0.0 - 2.0 %) 0.6 Absolute Granulocytes (1.4 - 6.5 /CUMM) 2.9 Absolute Lymphocytes (1.2 - 3.4 /CUMM) 1.2 Absolute Monocytes (0.10 - 0.60 /CUMM) 0.6 Absolute Eosinophils (0.0 - 0.7 /CUMM) 0.1 Absolute Basophils (0.0 - 0.2 /CUMM) 0 PUBS MCHC (33.0 - 37.0 G/DL) 33.8 Tele: Sinus rythm/sinus shruthi. A/P; 71-year-old male with past medical history significant for TIAs, history of loop recorder and follows up with the bar roller at [facility] who was originally admitted with some ringing in the ears and generalized leg weakness and later had developed an evolving right cerebellar infarct. Patient is monitored on telemetry. Lipid profile is excellent. Patient continued on statin. Eval noted by neurology and the recommended continuing the patient on 2 antiplatelet agents. Had NEG done and results are awaited. Echo will be done tomorrow. Please consult cardiology for the evaluation of the loop recorder. Patient has been started on diet therefore can stop IV fluids if tolerates diet well. DVT prophylaxis: Lovenox. I had a lengthy discussion with patient and . They have a lot of concerns. They want the neurologist to come and see again. We will call the plumbing engineering draftsperson neurologist and notify them. They also want to know the results of the EEG. Also would like to aggressively work with physical therapy. They will like the bar roller to evaluate the loop recorder.
[2017-06-09 15:22] VITALS: BP 138/78
[2017-06-09 22:44] VITALS: BP 118/78
[2017-06-10 06:34] VITALS: BP 120/80
[2017-06-10 08:25] LABS: ABSOLUTE BASOPHIL COUNT 0 /CUMM (0.0-0.2); ABSOLUTE EOSINOPHIL COUNT 0.1 /CUMM (0.0-0.7); ABSOLUTE GRANULOCYTE CT 2.3 /CUMM (1.4-6.5); ABSOLUTE LYMPH COUNT 1.5 /CUMM (1.2-3.4); ABSOLUTE MONOCYTE COUNT 0.6 /CUMM (0.10-0.60); BASOPHIL % 0.7 % (0.0-2.0); EOSINOPHIL % 2.1 % (0-5); GRANULOCYTE % 49.9 % (42.2-75.2); HEMATOCRIT 40.9 % (42-52); MEAN CORPUSCULAR HGB 30.6 PG (27.0-31.0); MEAN CORPUSCULAR HGB CONC 33.7 G/DL (33.0-37.0); MEAN CORPUSCULAR VOLUME 90.8 FL (80.0-94.0); MEAN PLATELET VOLUME 8.4 FL (7.4-10.4); PLATELET COUNT 164 /CUMM (130-400); RBC DISTRIBUTION WIDTH 14.4 % (11.5-14.5); WHITE BLOOD CELL COUNT 4.6 /CUMM (4.8-10.8)
--- NOTE | 2017-06-10 08:30 | NUR ---
PHYSICAL THERAPY. Pt CURRENTLY RECEIVING BEDSIDE ECHO. NO NEW MRI OR NEUROLOGY REPORTS, THEREFORE NO CLEARANCE FOR OOB AT THIS TIME. PT WILL F/U APPROPRIATE.
--- NOTE | 2017-06-10 09:40 | PN- Housestaff ---
ENDY GRIMES 06/10/17 0939: Subjective Follow-up For: Possible CVA First deg AVB Hypophosphotemia Subjective: Patient complains of dizziness with movement Review of Systems Constitutional: Reports: see HPI. Objective Last 24 Hrs of Vital Signs/I&O Vital Signs Date Time Temp Pulse Resp B/P B/P Pulse O2 O2 Flow FiO2 Mean Ox Delivery Rate 06/10 0634 97.8 55 20 120/80 95 CPAP 06/09 2244 99.2 53 16 118/78 93 CPAP 06/09 1522 98.5 59 20 138/78 96 Room Air Intake & Output 06/10 1600 06/10 0800 06/10 0000 Intake Total 200 200 500 Output Total 300 700 Balance 200 -100 -200 Intake, IV 200 Intake, Oral 200 200 300 Output, Urine 300 700 Physical Exam General Appearance: Alert, Oriented X3, Cooperative, No Acute Distress HEENT: Atraumatic, PERRLA Cardiovascular: Normal S1, Normal S2 Lungs: Clear to Auscultation, Normal Air Movement Abdomen: Normal Bowel Sounds, Soft, No Tenderness Extremities: No Cyanosis, No Edema, Alternating hand movements negative Current Medications: Current Medications Sig/Mckay Start time Last Medication Dose Route Stop Time Status Admin Acetaminophen 1,000 MG BID 06/08 1400 AC 06/09 IV 2137 Acetaminophen 650 MG Q6P PRN 06/07 1630 AC PO Aspirin 81 MG DAILY 06/09 1000 AC 06/10 PO 1032 Atorvastatin Calcium 80 MG 1700 06/08 1700 AC 06/09 PO 1649 Clopidogrel Bisulfate 75 MG DAILY 06/08 1000 AC 06/10 PO 1032 Dextrose/Sodium 1,000 ML Q10H 06/07 1845 DC 06/09 Chloride IV 0600 Enoxaparin Sodium 40 MG DAILY 06/07 1626 AC 06/10 SC 1032 Oxycodone/ 1 TAB Q6P PRN 06/07 1630 AC 06/08 Acetaminophen PO 1429 Polyethylene Glycol 17 GM DAILY 06/09 1838 AC 06/10 PO 1037 Promethazine HCl 25 MG Q4P PRN 06/07 1815 AC 06/08 IV 06/14 1814 0715 Senna/Docusate Sodium 1 TAB BID 06/09 2200 AC 06/10 PO 1032 Last 24 Hrs of Lab/Isaiah Results Last 24 Hrs of Labs/Mics: Laboratory Tests 06/10/17 0615: Anion Gap 8, Estimated GFR > 60, BUN/Creatinine Ratio 20.0, CBC w Diff NO MAN DIFF REQ, RBC 4.50 L, MCV 90.8, MCH 30.6, RDW 14.4, MPV 8.4, Gran % 49.9, Lymphocytes % 33.1, Monocytes % 14.2 H, Eosinophils % 2.1, Basophils % 0.7, Absolute Granulocytes 2.3, Absolute Lymphocytes 1.5, Absolute Monocytes 0.6, Absolute Eosinophils 0.1, Absolute Basophils 0, PUBS MCHC 33.7 Assessment/Plan Assessment: Assessment: 71-year-old gentleman with a PMH of TIAs 2 approximately 2 years ago, a follow- up loop recorder unremarkable approximately (Dr. Hudson devops consultant at [facility]) , shingles in 1970s, ?? Shingles neuropathic pain to left rib 2 months ago managed on Lyrica 50 mg in AM/100 mg in PM, intermittent episodes of dysuria with negative urine cultures currently managed on doxazosin 1 mg, YONAS unresolved S/P uvulectomy > 40yrs ago and currently on nocturnal CPAP (8 mmHg), L4/L5/S1 decompression and a fractured left ankle who was BIBA after sudden onset generalized body weakness and limb twitching. Problem list: 1. Acute onset generalized weakness with spontaneous flailing in all extremities 2. Nausea, vomiting 3. First-degree AV block 4. History of neuropathic pain 5. Intermittent episodes of dysuria 6. Hypophosphatemia: 1.4 7. HLD Plan: Possible CVA * Repeat MRI of the head shows areas of restricted diffusion in the right cerebellar hemisphere and vermis are increased compared to the prior study, consistent with evolving infarcts. * neuro checks q4h * EEG pending to rule out seizures, continue to hold Lyrica * Neuro consulted HLD * Continue Atorvastin 80mg First degree AVB Baseline first-degree AV block which was present on previous EKG in January 2016. No specific report of tick bite. * Lyme Ab pending * Hydration with D5NS @ 100/hr, NPO at this time with swallow evaluation in the morning Hypophosphatemia - resolved [place]/Vomiting * Phenergen PRN Diet-Health heart Full code Lovenox for DVT prophylaxis and Alps Problem List: 1. Cerebellar stroke Pain Ratin Pain Location: N/A Pain Goal: Remain pain free Pain Plan: N/A Tomorrow's Labs & Rationales: CBC to monitor leukopenia and anemia BRIGITTE MELTON MD 06/10/17 1339: Attending MD Review Statement Attending Statement Attending MD Statement: examined this patient, discuss w/resident/PA/FIELD COIL WINDER, agreed w/resident/PA/FIELD COIL WINDER, reviewed EMR data (avail), discussed with nursing, discussed with case mgmt, reviewed images, amended to note Attending Assessment/Plan: Patient seen and examined, feels the same. Seen by cardiology. Echo results are pending. vss. on exam; aox3, nad. cv; s1,s2, rrr resp; clear abd; soft, nt, bs+ ext; no edema. neuro: slightly decreased stregnth in lue but no sig change. Laboratory Tests 06/10 0615 Chemistry Sodium (137 - 145 mmol/L) 142 Potassium (3.5 - 5.1 mmol/L) 4.0 Chloride (98 - 107 mmol/L) 108 H Carbon Dioxide (22 - 30 mmol/L) 26 Anion Gap (5 - 16) 8 BUN (9 - 20 mg/dL) 14 Creatinine (0.7 - 1.2 mg/dL) 0.7 Estimated GFR (>60 ml/min) > 60 BUN/Creatinine Ratio (7 - 25 %) 20.0 Hematology CBC w Diff NO MAN DIFF REQ WBC (4.8 - 10.8 /CUMM) 4.6 L RBC (4.70 - 6.10 /CUMM) 4.50 L Hgb (14.0 - 18.0 G/DL) 13.8 L Hct (42 - 52 %) 40.9 L MCV (80.0 - 94.0 FL) 90.8 MCH (27.0 - 31.0 PG) 30.6 RDW (11.5 - 14.5 %) 14.4 Plt Count (130 - 400 /CUMM) 164 MPV (7.4 - 10.4 FL) 8.4 Gran % (42.2 - 75.2 %) 49.9 Lymphocytes % (20.5 - 51.1 %) 33.1 Monocytes % (1.7 - 9.3 %) 14.2 H Eosinophils % (0 - 5 %) 2.1 Basophils % (0.0 - 2.0 %) 0.7 Absolute Granulocytes (1.4 - 6.5 /CUMM) 2.3 Absolute Lymphocytes (1.2 - 3.4 /CUMM) 1.5 Absolute Monocytes (0.10 - 0.60 /CUMM) 0.6 Absolute Eosinophils (0.0 - 0.7 /CUMM) 0.1 Absolute Basophils (0.0 - 0.2 /CUMM) 0 PUBS MCHC (33.0 - 37.0 G/DL) 33.7 A/P; 71-year-old male with past medical history significant for TIAs, history of loop recorder and follows up with the devops consultant at [facility] who was originally admitted with some ringing in the ears and generalized leg weakness and later had developed an evolving right cerebellar infarct. Follow-up on echo results. Follow-up on EEG results. Continue dual antiplatelet therapy. Continue statin. As per cardiology, loop recorder can be interrogated and patient might need a ANKUSH depend on the echo results. Please check carotid Doppler ultrasound. DVT px; lovenox.
--- NOTE | 2017-06-10 12:04 | Cons- Cardiology ---
General Information and HPI Consulting Request Date of Consult: 06/10/17 Requested By: JUAN DIEGO BURCIAGA MD Reason for Consult: CVA, loop recorder Source of Information: patient, old records History of Present Illness: This is a pleasant 71-year-old male with a past medical history of recurrent TIA , implantable loop recorder ([place]) with no reported evidence of atrial fibrillation thus far, possible postherpetic neuralgia, and sleep apnea who presented to [facility] on June 07 with a chief complaint of a set in onset weaning in his years followed by intermittent involuntary limb twitching with difficulty maintaining his balance. He reports he is been maintained on dual antiplatelet and statin therapy for his prior TIAs. He denied any associated chest pain, palpitations, loss of consciousness, orthopnea, paroxysmal nocturnal dyspnea, or obvious bleeding. He did report nausea. No associated diaphoresis. He did have an MRI which was suspicious for evolving infarct. Allergies/Medications Allergies: Coded Allergies: NO KNOWN ALLERGIES (01/27/16) Home Med List: Clopidogrel Bisulfate (Clopidogrel) 75 MG TABLET 1 TAB PO DAILY BLOOD THINNER (Reported) Doxazosin Mesylate 2 MG TABLET 0.5 TAB PO DAILY Urinary symptoms (Reported) Pregabalin (Lyrica) 100 MG CAPSULE 1 CAP PO BID Neuropathy (Reported) Simvastatin (Zocor*) 40 MG TABLET 1 TAB PO QPM CHOLESTEROL (Reported) Current Medications: Current Medications Sig/Mckay Start time Last Medication Dose Route Stop Time Status Admin Acetaminophen 1,000 MG BID 06/08 1400 AC 06/09 IV 2137 Acetaminophen 650 MG Q6P PRN 06/07 1630 AC PO Aspirin 81 MG DAILY 06/09 1000 AC 06/10 PO 1032 Atorvastatin Calcium 80 MG 1700 06/08 1700 AC 06/09 PO 1649 Clopidogrel Bisulfate 75 MG DAILY 06/08 1000 AC 06/10 PO 1032 Dextrose/Sodium 1,000 ML Q10H 06/07 1845 DC 06/09 Chloride IV 0600 Enoxaparin Sodium 40 MG DAILY 06/07 1626 AC 06/10 SC 1032 Oxycodone/ 1 TAB Q6P PRN 06/07 1630 AC 06/08 Acetaminophen PO 1429 Polyethylene Glycol 17 GM DAILY 06/09 1838 AC 06/10 PO 1037 Promethazine HCl 25 MG Q4P PRN 06/07 1815 AC 06/08 IV 06/14 181 0715 Senna/Docusate Sodium 1 TAB BID 06/09 2200 AC 06/10 PO 1032 Review of Systems Review of Systems: Review of systems as per HPI. The remainder of a 10 point review of systems was reviewed and was otherwise negative. 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 Psychosocial History Where Do You Live? 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 Alert. Eyes: No obvious scleral icterus. HEENT: No jugular venous distention or abnormal jugular venous pulsations. Cardiovascular: Normal intensity S1/S2. Regular Respiratory: Lungs clear to auscultation bilaterally. Abdomen: Soft, nontender with no guarding or rebound tenderness. Musculoskeletal: No clubbing or cyanosis noted, no edema Skin: Warm Neurologic: Mild dysarthria Lymph: No gross lymphadenopathy. Labs/Isaiah Results: Laboratory Tests 06/10 06/09 0615 0605 Chemistry Sodium (137 - 145 mmol/L) 142 145 Potassium (3.5 - 5.1 mmol/L) 4.0 3.9 Chloride (98 - 107 mmol/L) 108 H 110 H Carbon Dioxide (22 - 30 mmol/L) 26 29 Anion Gap (5 - 16) 8 7 BUN (9 - 20 mg/dL) 14 13 Creatinine (0.7 - 1.2 mg/dL) 0.7 0.8 Estimated GFR (>60 ml/min) > 60 > 60 BUN/Creatinine Ratio (7 - 25 %) 20.0 16.3 Hematology CBC w Diff NO MAN DIFF REQ NO MAN DIFF REQ WBC (4.8 - 10.8 /CUMM) 4.6 L 4.9 RBC (4.70 - 6.10 /CUMM) 4.50 L 4.54 L Hgb (14.0 - 18.0 G/DL) 13.8 L 13.9 L Hct (42 - 52 %) 40.9 L 41.2 L MCV (80.0 - 94.0 FL) 90.8 90.8 MCH (27.0 - 31.0 PG) 30.6 30.7 RDW (11.5 - 14.5 %) 14.4 14.9 H Plt Count (130 - 400 /CUMM) 164 177 MPV (7.4 - 10.4 FL) 8.4 7.8 Gran % (42.2 - 75.2 %) 49.9 58.7 Lymphocytes % (20.5 - 51.1 %) 33.1 25.4 Monocytes % (1.7 - 9.3 %) 14.2 H 13.0 H Eosinophils % (0 - 5 %) 2.1 2.3 Basophils % (0.0 - 2.0 %) 0.7 0.6 Absolute Granulocytes (1.4 - 6.5 /CUMM) 2.3 2.9 Absolute Lymphocytes (1.2 - 3.4 /CUMM) 1.5 1.2 Absolute Monocytes (0.10 - 0.60 /CUMM) 0.6 0.6 Absolute Eosinophils (0.0 - 0.7 /CUMM) 0.1 0.1 Absolute Basophils (0.0 - 0.2 /CUMM) 0 0 PUBS MCHC (33.0 - 37.0 G/DL) 33.7 33.8 Diagnostic Data EKG Results Tracing was personally reviewed and shows sinus rhythm with first-degree AV block and nonspecific T-wave abnormality Other Results Telemetry tracings were personally reviewed and shows sinus bradycardia MRI 1. The areas of restricted diffusion in the right cerebellar hemisphere and vermis are increased compared to the prior study, consistent with evolving infarcts. 2. There is a 4 mm area of hyperintensity demonstrated in the left suprasellar cistern. This is nonspecific has no correlate on other sequences. It may be consistent with partial voluming through the dorsum sellae. It could be further evaluated with dedicated MRI scan of the pituitary gland. 3. The right superior cerebellar artery is poorly demonstrated, but there is a prominent right AICA. No focal stenosis, aneurysm or vascular malformations are demonstrated elsewhere on the MR angiogram. Assessment/Plan Assessment/Plan 1. Acute CVA 2. Prior recurrent TIA 3. Implantable loop recorder 4. Sleep apnea 5. Possible postherpetic neuralgia Patient is found to have evidence of acute CVA. Continue dual antiplatelet and high-dose statin therapy. We'll arrange to have his loop recorder interrogated but he reports that his e commerce marketing manager has thus far found no evidence of silent atrial fibrillation. Obtain an echocardiogram; if this is felt to possibly be embolic he may be a candidate for transesophageal echocardiogram for further assessment of possible intracardiac source. May need a carotid Doppler for additional assessment of the more proximal carotid arteries (intracranial carotid arteries were imaged by MRI). Continue on telemetry. Pranay Underwood MD [facility] Consult Acknowledgment - Thank you for your consult request.
[2017-06-10 14:47] VITALS: BP 124/78
--- NOTE | 2017-06-10 15:54 | ULTRASOUND REPORT ---
EXAMINATION: DUPLEX BILATERAL CAROTID ULTRASOUND CLINICAL INFORMATION: Dizziness and syncope. COMPARISON: Carotid duplex dated 07/21/2012. TECHNIQUE: Real-time ultrasound and Doppler techniques (integrating B-mode 2D vascular images, Doppler spectral analysis and color flow Doppler imaging) were utilized to interrogate the extracranial carotid and vertebral arteries bilaterally. FINDINGS: Right side: 1. There is no significant hyperechoic plaque in the ECA/ICA region. 2. The common carotid artery velocity is 77 cm/s. 3. The proximal internal carotid artery velocities are 71 cm/s systolic and 28 cm/s diastolic. 4. The external carotid artery velocity is 122 cm/s. Left side: 1. There is mild hyperechoic plaque in the ECA/ICA region. 2. The common carotid artery velocity is 99 cm/s. 3. The proximal internal carotid artery velocities are 53 cm/s systolic and 20 cm/s diastolic. 4. The external carotid artery velocity is 94 cm/s. ADDITIONAL FINDINGS: 1. The vertebral arteries show antegrade flow. IMPRESSION: 1. RIGHT: Minimal, nonhemodynamically significant stenosis of the proximal right internal carotid artery corresponding to a 0-49% stenosis by velocity criteria. 2. LEFT: Minimal, nonhemodynamically significant stenosis of the proximal left internal carotid artery corresponding to a 0-49% stenosis by velocity criteria. 3. Antegrade flow is seen via the bilateral vertebral arteries.
--- NOTE | 2017-06-10 19:56 | PN- Neurology ---
Subjective Subjective: Feels his speech is improving. No diplopia. Persistent right hemiataxia. Review of Systems: YONAS, on nocturnal CPAP Otherwise unremarkable. Objective Vital Signs and I&Os Vital Signs Date Time Temp Pulse Resp B/P B/P Pulse O2 O2 Flow FiO2 Mean Ox Delivery Rate 06/10 1447 98.0 50 20 124/78 97 Room Air 06/10 0634 97.8 55 20 120/80 95 CPAP 06/09 2244 99.2 53 16 118/78 93 CPAP Intake & Output 06/10 1600 06/10 0800 06/10 0000 06/09 1600 06/09 0800 06/09 0000 Intake Total 500 509 796 3749 900 650 Output Total 700 300 700 200 200 850 Balance -200 -100 -200 900 700 -200 Intake, IV 200 800 800 500 Intake, Oral 500 200 300 300 100 150 Number 0 Bowel Movements Output, Urine 700 300 700 200 200 850 Patient 215 lb Weight Physical Exam: Awake alert oriented to person place time and situation Speech fluent; very subtle cerebellar dysarthria Full extraocular movements Symmetric facial movements Muscle strength normal Right heidi-ataxia involving the arm more so than the leg Current Medications: Current Medications Sig/Mckay Start time Last Medication Dose Route Stop Time Status Admin Acetaminophen 1,000 MG BID 06/08 1400 AC 06/09 IV 2137 Acetaminophen 650 MG Q6P PRN 06/07 1630 AC PO Aspirin 81 MG DAILY 06/09 1000 AC 06/10 PO 1032 Atorvastatin Calcium 80 MG 1700 06/08 1700 AC 06/10 PO 1655 Clopidogrel Bisulfate 75 MG DAILY 06/08 1000 AC 06/10 PO 1032 Enoxaparin Sodium 40 MG DAILY 06/07 1626 AC 06/10 SC 1032 Oxycodone/ 1 TAB Q6P PRN 06/07 1630 AC 06/08 Acetaminophen PO 1429 Polyethylene Glycol 17 GM DAILY 06/09 1838 AC 06/10 PO 1037 Promethazine HCl 25 MG Q4P PRN 06/07 1815 AC 06/08 IV 06/14 181 0715 Senna/Docusate Sodium 1 TAB BID 06/09 2200 AC 06/10 PO 1032 Results Recent Imaging Studies: ADDITIONAL FINDINGS: 1. The vertebral arteries show antegrade flow. IMPRESSION: 1. RIGHT: Minimal, nonhemodynamically significant stenosis of the proximal right internal carotid artery corresponding to a 0-49% stenosis by velocity criteria. 2. LEFT: Minimal, nonhemodynamically significant stenosis of the proximal left internal carotid artery corresponding to a 0-49% stenosis by velocity criteria. 3. Antegrade flow is seen via the bilateral vertebral arteries. DICTATED BY: JULIO MARI MD IMPRESSION: 1. The areas of restricted diffusion in the right cerebellar hemisphere and vermis are increased compared to the prior study, consistent with evolving infarcts. 2. There is a 4 mm area of hyperintensity demonstrated in the left suprasellar cistern. This is nonspecific has no correlate on other sequences. It may be consistent with partial voluming through the dorsum sellae. It could be further evaluated with dedicated MRI scan of the pituitary gland. 3. The right superior cerebellar artery is poorly demonstrated, but there is a prominent right AICA. No focal stenosis, aneurysm or vascular malformations are demonstrated elsewhere on the MR angiogram. DICTATED BY: ANDERSON MITCHELL MD DATE/TIME DICTATED:06/08/171202 Assessment/Plan Assessment: Infarct of the right cerebellar hemisphere and vermis, resulting respectively in right-sided limb ataxia and truncal ataxia Stroke risks include family history and hypertension. Currently lipids are well controlled on statin, with an LDL of 73 According to the patient, extended loop recorder monitoring has been unremarkable to date. Plan: Continue dual antiplatelet therapy for now Check an echocardiogram Continue high intensity statin DVT prophylaxis Consult physical and occupational therapy He will likely benefit from inpatient rehabilitation; consider the [place]
--- NOTE | 2017-06-10 20:45 | ECHOCARDIOGRAM REPORT ---
CONSTANTINE MCWILLIAMS Age: 71 : 1945 Gender: M Exam Date: 06/10/2017 08:27 Exam Location: 1 [address] Ht (in): 71 Wt (lb): 214 BSA: 2.23 BP: 120 / 80 Ordering Physician: TATIANA RYAN MD Referring Physician: Henri Underwood M.D. Technologist: Mirta Roque RDCS Room Number: 171 Indications: STROKE Rhythm: Sinus Technical Quality: Fair FINDINGS Left Ventricle Left ventricular cavity size normal. Left ventricular wall thickness mildly increased. No obvious regional wall motion abnormalities. Left ventricular ejection fraction is estimated at > 60 %. Normal left ventricular diastolic filling pattern for age. Right Ventricle Normal right ventricular size and function. Right Atrium Normal right atrial size. Left Atrium Mild left atrial dilatation. Mitral Valve No mitral stenosis. Mild mitral annular calcification. Trace mitral regurgitation. Aortic Valve No aortic stenosis. Trileaflet aortic valve. Tricuspid Valve Structurally normal tricuspid valve. Trace to mild tricuspid regurgitation. Unable to estimate the right ventricular systolic pressure. Pulmonic Valve Pulmonic valve not well visualized, grossly normal. Pericardium No pericardial effusion. Great Vessels Mildly dilated aortic annulus (4.1 cm) CONCLUSIONS Left ventricular cavity size normal. Left ventricular wall thickness mildly increased. No obvious regional wall motion abnormalities. Left ventricular ejection fraction is estimated at > 60 %. Normal left ventricular diastolic filling pattern for age. Normal right ventricular size and function. Mild left atrial dilatation. Unable to estimate the right ventricular systolic pressure. Mildly dilated aortic annulus (4.1 cm). Henri Underwood M.D. (Electronically Signed) Final Date: 10 June 2017 20:45 MEASUREMENTS (Male / Female) Normal Values 2D ECHO LV Diastolic Diameter PLAX 4.7 cm 4.2 - 5.9 / 3.9 - 5.3 cm LV Systolic Diameter PLAX 1.7 cm 2.1 - 4.0 cm LV Fractional Shortening PLAX 63.8 % 25 - 46 % LV Ejection Fraction 2D Teich 91.8 % IVS Diastolic Thickness 1.3 cm LVPW Diastolic Thickness 1.3 cm LV Relative Wall Thickness 0.6 RV Internal Dim ED PLAX 2.6 cm 1.9 - 3.8 cm LVOT Diameter 2.0 cm Aortic Root Diameter 4.1 cm LA Systolic Diameter LX 4.1 cm 3.0 - 4.0 / 2.7 - 3.8 cm LA Volume 48.0 cm 18 - 58 / 22 - 52 cm Ascending Aorta Diameter 3.3 cm DOPPLER AV Peak Velocity 135.0 cm/s AV Peak Gradient 7.3 mmHg AV Mean Velocity 98.2 cm/s AV Mean Gradient 4.0 mmHg AV Velocity Time Integral 31.1 cm LVOT Peak Velocity 130.0 cm/s LVOT Peak Gradient 6.8 mmHg LVOT Mean Velocity 92.2 cm/s LVOT Mean Gradient 4.0 mmHg LVOT Velocity Time Integral 28.3 cm LVOT Stroke Volume 88.9 cm AV Area Cont Eq vti 2.9 cm AV Area Cont Eq pk 3.0 cm MV Peak Velocity 88.2 cm/s MV Peak Gradient 3.1 mmHg MV Mean Velocity 51.9 cm/s MV Mean Gradient 1.0 mmHg Mitral E Point Velocity 80.5 cm/s Mitral A Point Velocity 61.7 cm/s Mitral E to A Ratio 1.3 MV PHT Velocity 90.9 cm/s MV Deceleration [place] 334.0 cm/s MV Pressure Half Time 81.6 ms MV Area PHT 2.7 cm MV Deceleration Time 254.0 ms TR Peak Velocity 225.0 cm/s TR Peak Gradient 20.3 mmHg Right Atrial Pressure 5.0 mmHg Pulmonary Artery Systolic Pressu 25.3 mmHg Right Ventricular Systolic Press 25.3 mmHg PV Peak Velocity 93.7 cm/s PV Peak Gradient 3.5 mmHg PV Mean Velocity 62.0 cm/s PV Mean Gradient 2.0 mmHg PV Velocity Time Integral 23.4 cm LV E' Lateral Velocity 9.9 cm/s Mitral E to LV E' Lateral Ratio 8.1 LV E' Septal Velocity 7.1 cm/s Mitral E to LV E' Septal Ratio 11.3
[2017-06-10 22:47] VITALS: BP 104/58
--- NOTE | 2017-06-11 05:57 | PN- Housestaff ---
REBEKAH MARQUEZ 06/11/17 0555: Subjective Follow-up For: - weakness, incoordination Complaints: no complaints Subjective: Pt was comfortable. No complaints, but was concerned about the weakness in his upper extremities. Vitals stable overnight. He remained afebrile overnight. No abnormal overnight telemetry events were recorded. During the weekend, echocardiogram and carotid Doppler tests were done. Discussed with Henri Underwood MD, sand caster apprentice about the management plan, which would include a transesophageal echocardiogram in the next few days. This a.m., the sand caster apprentice reviewed the events from the loop recorder, and was of the opinion that in atrial flutter could not be completely ruled out. Advised on discussing with the patient's sand caster apprentice, Dr. Montoya. Contacted Dr. Badillo, who mentioned that there was any event in November 2016, which looked like tachycardia. No other events were recorded ever since. As per the sand caster apprentice, there has been no disruption in communication between the loop recorder and his office. Spoke to Dr. Graves about a possible anticoagulation, if needed for the treatment of atrial flutter, if proven. As per the neurologist, it was okay to start the anticoagulation, as the size of the infarct was not large enough. Informed the sand caster apprentice/Henri Underwood MD. Plan is to get a transesophageal echocardiogram on 06/13/2017, along with a bubble study. Review of Systems Constitutional: Reports: see HPI. Objective Last 24 Hrs of Vital Signs/I&O Vital Signs Date Time Temp Pulse Resp B/P B/P Pulse O2 O2 Flow FiO2 Mean Ox Delivery Rate 06/10 2247 98.1 63 16 104/58 95 Room Air 06/10 1447 98.0 50 20 124/78 97 Room Air 06/10 0634 97.8 55 20 120/80 95 CPAP Intake & Output 06/11 0800 06/11 0000 06/10 1600 Intake Total 410 500 Output Total 1250 700 Balance -840 -200 Intake, IV 10 Intake, Oral 400 500 Number 0 Bowel Movements Output, Urine 1250 700 Physical Exam General Appearance: No Acute Distress Other Physical Findings: General Exam: AAOx3, No acute distress, Skin: No rashes, no breakdown HEENT: PERRLA, EOMI Neck: Supple, No JVD No cervical lymphadenopathy CVS: Reg Rate, Normal S1,S2, No MGR Resp: Normal air entry, no ronchi/rales Abdomen: Soft, No tenderness, Normal Bowel Sounds Neuro: Normal Speech, Strength 5/5 left upper and lower extremity, 4/5 right upper extremity, 5/5 right lower extremity., Sensation intact, CN III-XII NL, Reflexes 2+, fingertest abnormal on the right side. Gait could not be tested. Extremities: No cyanosis, pedal edema Current Medications: Current Medications Sig/Mckay Start time Last Medication Dose Route Stop Time Status Admin Acetaminophen 1,000 MG BID 06/08 1400 AC 06/09 IV 2137 Acetaminophen 650 MG Q6P PRN 06/07 1630 AC PO Aspirin 81 MG DAILY 06/09 1000 AC 06/10 PO 1032 Atorvastatin Calcium 80 MG 1700 06/08 1700 AC 06/10 PO 1655 Bisacodyl 10 MG DAILY PRN 06/10 2100 AC ID Clopidogrel Bisulfate 75 MG DAILY 06/08 1000 AC 06/10 PO 1032 Enoxaparin Sodium 40 MG DAILY 06/07 1626 AC 06/10 SC 1032 Oxycodone/ 1 TAB Q6P PRN 06/07 1630 AC 06/08 Acetaminophen PO 1429 Polyethylene Glycol 17 GM DAILY 06/09 1838 AC 06/10 PO 1037 Promethazine HCl 25 MG Q4P PRN 06/07 1815 AC 06/08 IV 06/14 181 0715 Senna/Docusate Sodium 1 TAB BID 06/09 2200 AC 06/10 PO 2058 Last 24 Hrs of Lab/Isaiah Results Last 24 Hrs of Labs/Mics: Laboratory Tests 06/10/17 0615: Anion Gap 8, Estimated GFR > 60, BUN/Creatinine Ratio 20.0, CBC w Diff NO MAN DIFF REQ, RBC 4.50 L, MCV 90.8, MCH 30.6, RDW 14.4, MPV 8.4, Gran % 49.9, Lymphocytes % 33.1, Monocytes % 14.2 H, Eosinophils % 2.1, Basophils % 0.7, Absolute Granulocytes 2.3, Absolute Lymphocytes 1.5, Absolute Monocytes 0.6, Absolute Eosinophils 0.1, Absolute Basophils 0, PUBS MCHC 33.7 Assessment/Plan Assessment: Mr Sargent is a 71-year-old man with a PMH of TIAs 2 approximately 2 years ago w/ an implanted loop recorder in place, shingles in 1970s, postherpetic neuralgia, YONAS unresolved S/P uvulectomy > 40yrs ago and currently on nocturnal CPAP (8 mmHg), L4/L5/S1 decompression and a fractured left ankle who was BIBA after sudden onset generalized body weakness and right limb twitching x 1day prior to admission. He also had nausea and vomiting at the time of physical examination in the ED. At the time of admission, temperature 98.5, pulse rate 93, respiration 18, blood pressure 155/84, 98% on room air. EKG revealed heart rate 98, first-degree AV block, nonspecific ST-T wave changes. Lab findings indicated-WBC 4.1, hemoglobin 15.1, platelets 202, electrolytes-sodium 142, potassium 4.0, normal renal function BUN 16, serum creatinine 0.9, lipid panel-triglyceride 115, cholesterol 140, LDL 73, HDL 44. Thyroid function-TSH, free T4 within normal limits. Urine toxicology-screen was negative for opiates and barbiturates alcohol or cannabis. Lyme disease antibody was negative. Radiologic findings-CAT scan head without IV contrast done on 06/07/2017-did not reveal any acute intracranial pathology. A subsequent MRI brain without contrast revealed few scattered chronic small vessel ischemic changes within the ventricular white matter. However no evidence of acute infarct or hemorrhage was found. Upon subsequent MRA of head revealed areas of restricted diffusion in the right cerebellar hemisphere and vermis which were increased compared to the prior study consisting with evolving infarcts. Carotid Doppler study did not reveal any abnormalities-right and left carotid had minimal nonhemodynamically significant stenosis of proximal internal carotid artery between 0-49% stenosis. Echocardiogram revealed left ventricle ejection fraction of about 60%. Mildly dilated aortic annulus was found. EEG was unremarkable. Below is the problem list and plan: #1 right limb ataxia, nystagmus, nausea vomiting-patient was initially admitted on general medicine floor, was transferred to telemetry upon worsening of symptoms. CVA. The patient showed remarkable improvement in the last [address] Graves, neurologist advising. Continue the patient on dual antiplatelet therapy-aspirin, Plavix and high intensity statin.. Several episodes of TIA, and radiological and clinical evidence of cerebellar stroke, with no other risk factors would require a careful evaluation of a possible cardiac source. As per the sand caster apprentice, there were no abnormal arrhythmias recorded in the last few months. Continue with trans-esophageal echocardiogram, as advised by Henri Underwood MD; including a bubble study. Physical therapy treatment. Continue regular diet. Continue to monitor closely, including hemodynamics considering cerebellar infarct. #2 pain management-continue with opiates, and Tylenol. Resume gabapentin, once the patient is more stable. Problem List: 1. Cerebellar stroke 2. Gait disorder 3. Vertigo Pain Ratin Pain Location: none Pain Goal: Pain 4 or less Pain Plan: tylenol prn Tomorrow's Labs & Rationales: cbc bep SERA WONG 06/11/17 1133: Attending MD Review Statement Attending Statement Attending MD Statement: examined this patient, discuss w/resident/PA/CATERING ADMINISTRATIVE ASSISTANT, agreed w/resident/PA/CATERING ADMINISTRATIVE ASSISTANT, discussed with family, reviewed EMR data (avail), discussed with nursing, discussed with case mgmt, reviewed images, amended to note Attending Assessment/Plan: echo EF 60% no RWMA. normal EEG results, f/u neurology, Continue dual antiplatelet therapy, Continue statin. As per cardiology, loop recorder can be interrogated and patient might need a ANKUSH depend on the echo results. negative carotid Doppler ultrasound. PT eval for d/c planning. w/resident/PA/CATERING ADMINISTRATIVE ASSISTANT, discussed with family, reviewed EMR data (avail), discussed with nursing, discussed with case mgmt, reviewed images, amended to note Attending Assessment/Plan: echo EF 60% no RWMA. normal EEG results, f/u neurology, Continue dual antiplatelet therapy, Continue statin. As per cardiology, loop recorder can be interrogated and patient might need a ANKUSH depend on the echo results. negative carotid Doppler ultrasound. PT eval for d/c planning.
[2017-06-11 06:37] VITALS: BP 140/90
[2017-06-11 08:25] LABS: ABSOLUTE BASOPHIL COUNT 0 /CUMM (0.0-0.2); ABSOLUTE EOSINOPHIL COUNT 0.1 /CUMM (0.0-0.7); ABSOLUTE GRANULOCYTE CT 3.2 /CUMM (1.4-6.5); ABSOLUTE LYMPH COUNT 1.4 /CUMM (1.2-3.4); ABSOLUTE MONOCYTE COUNT 0.7 /CUMM (0.10-0.60); BASOPHIL % 0.5 % (0.0-2.0); EOSINOPHIL % 2.1 % (0-5); GRANULOCYTE % 58.1 % (42.2-75.2); HEMATOCRIT 42.1 % (42-52); MEAN CORPUSCULAR HGB 30.3 PG (27.0-31.0); MEAN CORPUSCULAR HGB CONC 33.8 G/DL (33.0-37.0); MEAN CORPUSCULAR VOLUME 89.7 FL (80.0-94.0); MEAN PLATELET VOLUME 7.9 FL (7.4-10.4); PLATELET COUNT 192 /CUMM (130-400); RBC DISTRIBUTION WIDTH 14.4 % (11.5-14.5); WHITE BLOOD CELL COUNT 5.5 /CUMM (4.8-10.8)
--- NOTE | 2017-06-11 09:57 | ELECTROENCEPHALOGRAM REPORT ---
Electroencephalogram Report Electroencephalogram Results Date of service: 06/08/17 Attending MD: JUAN DIEGO BURCIAGA MD Foundry Technician: Melania SneedDenis EEG Number: [id number] Test Utilizes: 10-20 system, 21 lead 18 channel digital recording Pertinent Hx/Physical/Neuro Findings/Clin Diagnosis: this 71-year-old man. He was described as briefly awake but mostly drowsy or asleep. Hyperventilation deferred due to cardiac problems Inpatient Medications: Current Medications Sig/Mckay Start time Last Medication Dose Route Stop Time Status Admin Acetaminophen 1,000 MG BID 06/08 1400 AC 06/09 IV 2137 Acetaminophen 650 MG Q6P PRN 06/07 1630 AC PO Aspirin 81 MG DAILY 06/09 1000 AC 06/11 PO 0946 Atorvastatin Calcium 80 MG 1700 06/08 1700 AC 06/10 PO 1655 Bisacodyl 10 MG DAILY PRN 06/10 2100 AC 06/11 NM 0949 Clopidogrel Bisulfate 75 MG DAILY 06/08 1000 AC 06/11 PO 0946 Enoxaparin Sodium 40 MG DAILY 06/07 1626 AC 06/11 SC 0947 Oxycodone/ 1 TAB Q6P PRN 06/07 1630 AC 06/08 Acetaminophen PO 1429 Polyethylene Glycol 17 GM DAILY 06/09 1838 AC 06/11 PO 0947 Promethazine HCl 25 MG Q4P PRN 06/07 1815 AC 06/08 IV 06/14 1814 0715 Senna/Docusate Sodium 1 TAB BID 06/09 2200 AC 06/11 PO 0946 Interpretation: The waking background is dominated by low voltage beta activity in the 20-22 Hz range seen in a generalized manner with intermittent posteri low amplitude 10 Hz alpha. Most of the recording is drowsy or asleep with generalized sl in the theta range. Vertex waves and K complexes of sleep are seen. No focal, lateralized or epil abnormalities. Impression: Normal in the states of wakefullness, drowsiness and sleep.
--- NOTE | 2017-06-11 11:56 | PN- Cardiology ---
Subjective Subjective: Patient denies any chest pain, dyspnea, or palpitations. He does note constipation. Objective Vital Signs and I&Os Vital Signs Date Time Temp Pulse Resp B/P B/P Pulse O2 O2 Flow FiO2 Mean Ox Delivery Rate 06/11 0637 97.9 55 16 140/90 95 Room Air 06/10 2247 98.1 63 16 104/58 95 Room Air 06/10 1447 98.0 50 20 124/78 97 Room Air Intake & Output 06/11 1600 06/11 0800 06/11 0000 06/10 1600 06/10 0800 06/10 0000 Intake Total 240 410 500 200 500 Output Total 800 1250 700 300 700 Balance -560 -840 -200 -100 -200 Intake, IV 10 200 Intake, Oral 240 400 500 200 300 Number 0 Bowel Movements Output, Urine 800 1250 700 300 700 Physical Exam: General: no apparent distress. Alert. Eyes: No obvious scleral icterus. HEENT: No jugular venous distention or abnormal jugular venous pulsations. Cardiovascular: Normal intensity S1/S2. Regular Respiratory: Lungs clear to auscultation bilaterally. Abdomen: Soft, nontender with no guarding or rebound tenderness. Musculoskeletal: No clubbing or cyanosis noted, no edema Skin: Warm Neurologic: Normal speech Lymph: No gross lymphadenopathy. Current Medications: Current Medications Sig/Mckay Start time Last Medication Dose Route Stop Time Status Admin Acetaminophen 1,000 MG BID 06/08 1400 AC 06/09 IV 2137 Acetaminophen 650 MG Q6P PRN 06/07 1630 AC PO Aspirin 81 MG DAILY 06/09 1000 AC 06/11 PO 0946 Atorvastatin Calcium 80 MG 1700 06/08 1700 AC 06/10 PO 1655 Bisacodyl 10 MG DAILY PRN 06/10 2100 AC 06/11 [place] 0949 Clopidogrel Bisulfate 75 MG DAILY 06/08 1000 AC 06/11 PO 0946 Enoxaparin Sodium 40 MG DAILY 06/07 1626 AC 06/11 SC 0947 Oxycodone/ 1 TAB Q6P PRN 06/07 1630 AC 06/08 Acetaminophen PO 1429 Polyethylene Glycol 17 GM DAILY 06/09 1838 AC 06/11 PO 0947 Promethazine HCl 25 MG Q4P PRN 06/07 1815 AC 06/08 IV 06/14 1814 0715 Senna/Docusate Sodium 1 TAB BID 06/09 2200 AC 06/11 PO 0946 Results Last 48 Hrs of Labs/Mics: Laboratory Tests 06/11/17 0622: Anion Gap 7, Estimated GFR > 60, BUN/Creatinine Ratio 17.8, CBC w Diff NO MAN DIFF REQ, RBC 4.70, MCV 89.7, MCH 30.3, RDW 14.4, MPV 7.9, Gran % 58.1, Lymphocytes % 26.2, Monocytes % 13.1 H, Eosinophils % 2.1, Basophils % 0.5, Absolute Granulocytes 3.2, Absolute Lymphocytes 1.4, Absolute Monocytes 0.7 H, Absolute Eosinophils 0.1, Absolute Basophils 0, PUBS MCHC 33.8 06/10/17 0615: Anion Gap 8, Estimated GFR > 60, BUN/Creatinine Ratio 20.0, CBC w Diff NO MAN DIFF REQ, RBC 4.50 L, MCV 90.8, MCH 30.6, RDW 14.4, MPV 8.4, Gran % 49.9, Lymphocytes % 33.1, Monocytes % 14.2 H, Eosinophils % 2.1, Basophils % 0.7, Absolute Granulocytes 2.3, Absolute Lymphocytes 1.5, Absolute Monocytes 0.6, Absolute Eosinophils 0.1, Absolute Basophils 0, PUBS MCHC 33.7 Recent Imaging Studies: Telemetry tracings were personally reviewed and shows sinus rhythm and sinus bradycardia Loop recorder was interrogated and tracings personally reviewed; see below Echo: Left ventricular cavity size normal. Left ventricular wall thickness mildly increased. No obvious regional wall motion abnormalities. Left ventricular ejection fraction is estimated at > 60 %. Normal left ventricular diastolic filling pattern for age. Normal right ventricular size and function. Mild left atrial dilatation. Unable to estimate the right ventricular systolic pressure. Mildly dilated aortic annulus (4.1 cm). Henri Underwood M.D. (Electronically Signed) Final Date: 10 June 2017 20:45 Carotid US: 1. RIGHT: Minimal, nonhemodynamically significant stenosis of the proximal right internal carotid artery corresponding to a 0-49% stenosis by velocity criteria. 2. LEFT: Minimal, nonhemodynamically significant stenosis of the proximal left internal carotid artery corresponding to a 0-49% stenosis by velocity criteria. 3. Antegrade flow is seen via the bilateral vertebral arteries. Assessment/Plan Assessment/Plan 1. Acute CVA 2. Prior recurrent TIA 3. Implantable loop recorder 4. Sleep apnea 5. Possible postherpetic neuralgia 6. Mild aortic root dilatation by echo We did interrogate the patient's loop recorder today and there were no clear episodes of sustained atrial fibrillation or atrial flutter; there are some previous tachycardia events the longest of which was 7 minutes and could represent sinus tachycardia or atrial tachycardia (although excluding short periods of atrial flutter was not possible based on these strips). Discussed with the medical team and the patient at length; given the recurrent neurologic events it is reasonable to proceed with transesophageal echocardiogram to exclude any evidence of intracardiac/aortic embolic source. 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 He should be nothing by mouth after midnight on Sunday. Pranay Underwood MD [facility] Continue telemetry? Yes
[2017-06-11 14:36] VITALS: BP 128/70
[2017-06-11 23:08] VITALS: BP 110/60
[2017-06-12 07:24] VITALS: BP 120/70
[2017-06-12 07:44] LABS: ABSOLUTE BASOPHIL COUNT 0 /CUMM (0.0-0.2); ABSOLUTE EOSINOPHIL COUNT 0.1 /CUMM (0.0-0.7); ABSOLUTE GRANULOCYTE CT 3.2 /CUMM (1.4-6.5); ABSOLUTE LYMPH COUNT 1.3 /CUMM (1.2-3.4); ABSOLUTE MONOCYTE COUNT 0.7 /CUMM (0.10-0.60); BASOPHIL % 0.5 % (0.0-2.0); EOSINOPHIL % 2.2 % (0-5); GRANULOCYTE % 60.2 % (42.2-75.2); HEMATOCRIT 41.7 % (42-52); MEAN CORPUSCULAR HGB 30.4 PG (27.0-31.0); MEAN CORPUSCULAR HGB CONC 33.7 G/DL (33.0-37.0); MEAN CORPUSCULAR VOLUME 90.1 FL (80.0-94.0); MEAN PLATELET VOLUME 7.9 FL (7.4-10.4); PLATELET COUNT 192 /CUMM (130-400); RBC DISTRIBUTION WIDTH 14.4 % (11.5-14.5); RED BLOOD CELL CT 4.62 /CUMM (4.70-6.10); WHITE BLOOD CELL COUNT 5.4 /CUMM (4.8-10.8)
--- NOTE | 2017-06-12 08:10 | PN- Housestaff ---
REBEKAH MARQUEZ 06/12/17 0806: Subjective Follow-up For: - cerebellar stroke Tele-Events Since Last Visit: Normal sinus rhythm, heart rate in the range of 47-59, first degree AV block. Subjective: Patient was comfortable this morning. He was concerned about his residual neurological deficits, mostly dysmetria. Explain to him about the benefits of physical therapy and reversibility of some neurological deficits, given the plasticity of the neurovascular system. Vitals were stable overnight. He remained afebrile. He was concerned about increased lacrimation, from both eyes. No history of allergies, and the only possible explanation was likely from increased fatigue in extraocular eye muscles, post cerebellar stroke. No vision changes noted. Discussed with the physical therapy yesterday, about the value of repeating MR imaging, when the patient is clinically improving. The physical therapy, wanted to get an MR imaging done to be able to work with him. will discuss with the attending. Review of Systems Constitutional: Reports: see HPI. Objective Last 24 Hrs of Vital Signs/I&O Vital Signs Date Time Temp Pulse Resp B/P B/P Pulse O2 O2 Flow FiO2 Mean Ox Delivery Rate 06/12 0724 98.7 60 20 120/70 96 CPAP 06/11 2308 98.7 56 20 110/60 95 CPAP 06/11 1436 98.6 74 18 128/70 96 Room Air Intake & Output 06/12 1600 06/12 0800 06/12 0000 Intake Total Output Total 500 950 Balance -500 -950 Output, Urine 500 950 Physical Exam General Appearance: No Acute Distress Other Physical Findings: General Exam: AAOx3, No acute distress, Skin: No rashes, no breakdown HEENT: PERRLA, EOMI Neck: Supple, No JVD No cervical lymphadenopathy CVS: Reg Rate, Normal S1,S2, No MGR Resp: Normal air entry, no ronchi/rales Abdomen: Soft, No tenderness, Normal Bowel Sounds Neuro: Normal Speech, Strength 5/5 b/l x 4 extremities, abnormal finger-nose test on the right side, dysmetria,Sensation intact, CN III-XII NL, Reflexes 2+, no nystagmus Extremities: No cyanosis, pedal edema Current Medications: Current Medications Sig/Mckay Start time Last Medication Dose Route Stop Time Status Admin Acetaminophen 1,000 MG BID 06/08 1400 AC 06/09 IV 2137 Acetaminophen 650 MG Q6P PRN 06/07 1630 AC PO Aspirin 81 MG DAILY 06/09 1000 AC 06/11 PO 0946 Atorvastatin Calcium 80 MG 1700 06/08 1700 AC 06/11 PO 1704 Bisacodyl 10 MG DAILY PRN 06/10 2100 AC 06/11 WI 0949 Clopidogrel Bisulfate 75 MG DAILY 06/08 1000 AC 06/11 PO 0946 Enoxaparin Sodium 40 MG DAILY 06/07 1626 AC 06/11 SC 0947 Oxycodone/ 1 TAB Q6P PRN 06/07 1630 AC 06/08 Acetaminophen PO 1429 Polyethylene Glycol 17 GM DAILY 06/09 1838 AC 06/11 PO 0947 Promethazine HCl 25 MG Q4P PRN 06/07 1815 AC 06/08 IV 06/14 181 0715 Senna/Docusate Sodium 1 TAB BID 06/09 2200 AC 06/11 PO 2249 Last 24 Hrs of Lab/Isaiah Results Last 24 Hrs of Labs/Mics: Laboratory Tests 06/12/17 0653: CBC w Diff NO MAN DIFF REQ, RBC 4.62 L, MCV 90.1, MCH 30.4, RDW 14.4, MPV 7.9, Gran % 60.2, Lymphocytes % 23.8, Monocytes % 13.3 H, Eosinophils % 2.2, Basophils % 0.5, Absolute Granulocytes 3.2, Absolute Lymphocytes 1.3, Absolute Monocytes 0.7 H, Absolute Eosinophils 0.1, Absolute Basophils 0, PUBS MCHC 33.7 06/12/17 0638: Anion Gap 6, Estimated GFR > 60, BUN/Creatinine Ratio 33.3 H Assessment/Plan Assessment: Mr Sargent is a 71-year-old man with a PMH of TIAs 2 approximately 2 years ago w/ an implanted loop recorder in place, shingles in 1970s, postherpetic neuralgia, YONAS unresolved S/P uvulectomy > 40yrs ago and currently on nocturnal CPAP (8 mmHg), L4/L5/S1 decompression and a fractured left ankle who was BIBA after sudden onset generalized body weakness and right limb twitching x 1day prior to admission. He also had nausea and vomiting at the time of physical examination in the ED. Below is the problem list and plan: #1 right limb ataxia, nystagmus, nausea vomiting-patient was initially admitted on general medicine floor, was transferred to telemetry upon worsening of symptoms. CVA. The patient showed remarkable improvement in the last [address] symptoms[address] Dr[address] Graves, neurologist advising. Continue the patient on dual antiplatelet therapy-aspirin, Plavix and high intensity statin. Several episodes of TIA, and radiological and clinical evidence of cerebellar stroke, with no other risk factors would require a careful evaluation of a possible cardiac source. As per the straightener gun parts, there were no abnormal arrhythmias recorded in the last few months. Continue with trans-esophageal echocardiogram, as advised by Henri Underwood MD; including a bubble study. Physical therapy treatment. Continue regular diet. Continue to monitor closely, including hemodynamics considering cerebellar infarct. No family history of strokes, or clotting disorders. #2 pain management-continue with opiates, and Tylenol. Resume gabapentin, once the patient is more stable. #3 abnormal labs on basic electrolyte panel-elevated BUN, with normal serum creatinine and elevated potassium level. Only possible explanation could be a GI bleed. No new medications were started, but stress could likely cause these abnormal findings. However repeat test needs to be done to rule out any lab error. Problem List: 1. Cerebellar stroke 2. Vertigo Pain Ratin Pain Location: Back Pain Goal: Pain 4 or less Pain Plan: tylenol prn Tomorrow's Labs & Rationales: cbc celeste GALLARDOSERA Griffin 06/12/17 1037: Attending MD Review Statement Attending Statement Attending MD Statement: examined this patient, discuss w/resident/PA/ANIMAL DOCTOR, agreed w/resident/PA/ANIMAL DOCTOR, discussed with family, reviewed EMR data (avail), discussed with nursing, discussed with case mgmt, reviewed images, amended to note Attending Assessment/Plan: Patient clinically stable, neurochecks stable, echo EF 60% no RWMA. normal EEG results, f/u neurology, Continue dual antiplatelet therapy, Continue statin. As per cardiology, loop recorder interrogated with no lcear evidence of episodes of afib and patient need a ANKUSH scheduled tomorrow, negative carotid Doppler ultrasound. PT eval for d/c planning. OOB to chair today
--- NOTE | 2017-06-12 09:43 | PN- Cardiology ---
Subjective Subjective: Patient still complains of right-sided weakness. He denies chest pain or shortness of breath. Review of Systems: Eyes no blurred or double vision Ears no deafness or ringing Nose and throat no recurrent sinusitis Lungs per history of present illness Heart per history of present illness Abdomen no nausea vomiting Musculoskeletal occasional muscle and joint pains Psych no anxiety or depression Neuro right-sided weakness Endocrine no heat or cold intolerance Objective Vital Signs and I&Os Vital Signs Date Time Temp Pulse Resp B/P B/P Pulse O2 O2 Flow FiO2 Mean Ox Delivery Rate 06/12 0724 98.7 60 20 120/70 96 CPAP 06/11 2308 98.7 56 20 110/60 95 CPAP 06/11 1436 98.6 74 18 128/70 96 Room Air Intake & Output 06/12 1600 06/12 0800 06/12 0000 06/11 1600 06/11 0800 06/11 0000 Intake Total 680 240 410 Output Total 500 950 089 093 1003 Balance -500 -950 280 -560 -840 Intake, IV 10 Intake, Oral 680 240 400 Number 2 Bowel Movements Output, Urine 500 950 965 627 1354 Physical Exam: Patient is a well-developed well-nourished male appearing in no acute distress HEENT is unremarkable Neck is supple there is no JVD Lungs are clear Heart regular rhythm S1 and S2 are normal no murmurs gallops or rubs Abdomen bowel sounds positive Extremities without edema Neuro right-sided weakness Current Medications: Current Medications Sig/Mckay Start time Last Medication Dose Route Stop Time Status Admin Acetaminophen 1,000 MG BID 06/08 1400 AC 06/09 IV 2137 Acetaminophen 650 MG Q6P PRN 06/07 1630 AC PO Aspirin 81 MG DAILY 06/09 1000 AC 06/11 PO 0946 Atorvastatin Calcium 80 MG 1700 06/08 1700 AC 06/11 PO 1704 Bisacodyl 10 MG DAILY PRN 06/10 2100 AC 06/11 SD 0949 Clopidogrel Bisulfate 75 MG DAILY 06/08 1000 AC 06/11 PO 0946 Enoxaparin Sodium 40 MG DAILY 06/07 1626 AC 06/11 SC 0947 Oxycodone/ 1 TAB Q6P PRN 06/07 1630 AC 06/08 Acetaminophen PO 1429 Polyethylene Glycol 17 GM DAILY 06/09 1838 AC 06/11 PO 0947 Promethazine HCl 25 MG Q4P PRN 06/07 1815 AC 06/08 IV 06/14 1814 0723 Senna/Docusate Sodium 1 TAB BID 06/09 2200 AC 06/11 PO 2249 Results Last 48 Hrs of Labs/Mics: Laboratory Tests 06/12/17 0653: CBC w Diff NO MAN DIFF REQ, RBC 4.62 L, MCV 90.1, MCH 30.4, RDW 14.4, MPV 7.9, Gran % 60.2, Lymphocytes % 23.8, Monocytes % 13.3 H, Eosinophils % 2.2, Basophils % 0.5, Absolute Granulocytes 3.2, Absolute Lymphocytes 1.3, Absolute Monocytes 0.7 H, Absolute Eosinophils 0.1, Absolute Basophils 0, PUBS MCHC 33.7 06/12/17 0638: Anion Gap 6, Estimated GFR > 60, BUN/Creatinine Ratio 33.3 H 06/11/17 0622: Anion Gap 7, Estimated GFR > 60, BUN/Creatinine Ratio 17.8, CBC w Diff NO MAN DIFF REQ, RBC 4.70, MCV 89.7, MCH 30.3, RDW 14.4, MPV 7.9, Gran % 58.1, Lymphocytes % 26.2, Monocytes % 13.1 H, Eosinophils % 2.1, Basophils % 0.5, Absolute Granulocytes 3.2, Absolute Lymphocytes 1.4, Absolute Monocytes 0.7 H, Absolute Eosinophils 0.1, Absolute Basophils 0, PUBS MCHC 33.8 Telemetry personally reviewed sinus rhythm sinus bradycardia Assessment/Plan Assessment/Plan 1. Acute CVA 2. Prior recurrent TIA 3. Implantable loop recorder interrogation revealed no clear episodes of sustained atrial fibrillation or flutter. There were previous events of tachycardia which appeared to be sinus or atrial tach 4. Sleep apnea 5. Possible postherpetic neuralgia 6. Mild aortic root dilatation by echo Recommendations 1. We'll plan for ANKUSH to rule out the possibility of thrombus or intracardiac shunt. This will be scheduled for tomorrow. 2. Please make the patient nothing by mouth after midnight Continue telemetry? Yes
[2017-06-12 14:21] VITALS: BP 146/72
[2017-06-12] MEDS ORDERED: LYRICA100 M1 PO (16:18)
[2017-06-12] MEDS ORDERED: DOXAZOSIN MESYLA2 M1 PO (16:18)
[2017-06-12] MEDS ORDERED: NEURONTIN300 M1 PO (16:18)
--- NOTE | 2017-06-12 16:22 | Patient Discharge Instructions ---
Discharge Instructions General Discharge Information You were seen/treated for: -Stroke Watch for these problems: #1 weakness in bilateral upper or lower extremities,speech abnormality, and confusion #2 lightheadedness, dizziness, difficulty walking #3 chest pain, shortness of breath, palpitations (racing of heart) Special Instructions: #1 please follow up with her primary care provider within the week of discharge. #2 please follow-up with your wire stretcher within the week of discharge and discuss the Pradaxa. #3 please follow-up with your neurologist within 1 week of discharge. #4 please take your medications as prescribed. Acute Coronary Syndrome Inclusion Criteria At DC or during hospital stay patient has or had the following: ACS DIAGNOSIS No Discharge Core Measures Meds if any: Prescribed or Continued at Discharge Meds if any: NOT Prescribed or Continued at Discharge Congestive Heart Failure Inclusion Criteria At DC or during hospital stay patient has or had the following: CHF DIAGNOSIS No Discharge Core Measures Meds if any: Prescribed or Continued at Discharge Meds if any: NOT Prescribed or Continued at Discharge Cerebrovascular accident Inclusion Criteria At DC or during hospital stay patient has or had the following: CVA/TIA Diagnosis Yes Discharge Core Measures Meds if any: Prescribed or Continued at Discharge Antithrombotic Yes Statin (required if LDL =>70) Yes Anticoagulant No Meds if any: NOT Prescribed or Continued at Discharge Venous thromboembolism Inclusion Criteria VTE Diagnosis No VTE Type NONE VTE Confirmed by (Test) NONE Discharge Core Measures - Per Current guidelines, there needs to be overlap - treatment for the first 5 days of Warfarin therapy. - If discharged on Warfarin prior to 5 days of - overlap therapy, the patient will need to be - assessed for post discharge needs including - *Post discharge parental anticoagulation - *Warfarin and/or parental anticoagulation education - *Follow up date to check INR post discharge At least 5 days overlap therapy as Inpatient No Meds if any: Prescribed or Continued at Discharge Note: Overlap Therapy is Warfarin and Anticoagulant Meds if any: NOT Prescribed or Continued at Discharge
--- NOTE | 2017-06-12 16:23 | Discharge Summary ---
See Addendum Visit Information Visit Dates Admission Date: 06/07/17 Discharge Date: 06/14/2017 Hospital Course Course Attending Physician: MARVIN VALLES,SERA Primary Care Physician: LORE VALLES,[place] Hospital Course: Mr Sargent is a 71-year-old man with a PMH of TIAs 2 approximately 2 years ago w/ an implanted loop recorder in place, shingles in 1970s, postherpetic neuralgia, YONAS unresolved S/P uvulectomy > 40yrs ago and currently on nocturnal CPAP (8 mmHg), L4/L5/S1 decompression and a fractured left ankle who was BIBA after sudden onset generalized body weakness and right limb twitching x 1day prior to admission. He also had nausea and vomiting at the time of physical examination in the ED. At the time of admission, temperature 98.5, pulse rate 93, respiration 18, blood pressure 155/84, 98% on room air. EKG revealed heart rate 98, first-degree AV block, nonspecific ST-T wave changes. Lab findings indicated-WBC 4.1, hemoglobin 15.1, platelets 202, electrolytes-sodium 142, potassium 4.0, normal renal function BUN 16, serum creatinine 0.9, lipid panel-triglyceride 115, cholesterol 140, LDL 73, HDL 44. Thyroid function-TSH, free T4 within normal limits. Urine toxicology-screen was negative for opiates and barbiturates alcohol or cannabis. Lyme disease antibody was negative. Radiologic findings-CAT scan head without IV contrast done on 06/07/2017-did not reveal any acute intracranial pathology. A subsequent MRI brain without contrast revealed few scattered chronic small vessel ischemic changes within the ventricular white matter. However no evidence of acute infarct or hemorrhage was found. Upon subsequent MRA of head revealed areas of restricted diffusion in the right cerebellar hemisphere and vermis which were increased compared to the prior study consisting with evolving infarcts. Carotid Doppler study did not reveal any abnormalities-right and left carotid had minimal nonhemodynamically significant stenosis of proximal internal carotid artery between 0-49% stenosis. Echocardiogram revealed left ventricle ejection fraction of about 60%. Mildly dilated aortic annulus was found. EEG was unremarkable. Below is the problem list and plan: #1 right limb ataxia, nystagmus, nausea vomiting and dsymetria in thes setting of radiological findings suggestive of acute right sided cerebellar CVA. Dr. Graves, neurologist was consulted for advise and reccomended continuation of dual antiplatelet therapy-aspirin /Plavix and high intensity statin (Atorvastatin 80 mg).The patient showed remarkable improvement during subsequent days with PT/OT session. Since, the pt had several episodes of TIA, and radiological and clinical evidence of cerebellar stroke, with no other risk factors (unremarkable Carotid doppler, lipid panel at goal, non smoker,no hx of elevated BP), he required a careful evaluation of a possible cardiac source . As per his regular career representative, Dr. Hudson, there were no abnormal arrhythmias recorded in the last few months (pt has aloop recorder). Telemetry monitoring during hospital stay did not show any arythmias. A ANKUSH was performed which was remarkable for Patent foramen ovale and Interatrial septal aneurysm. Bilateral venous doppler of LE was performed which ruled out DVT as a source of possible embolus. Cardiology reccomended inititaion of Pradaxa 150mg po bid and continuation of Plavix ( Aspirin which was started during admission was therefore stopped). It was felt that given the new ANKUSH finding of intraseptal aneurysm with a PFO and a hx of multiple TIA, he would benefit from Anticoagulation. A discussion of surgical closure of PFO as an option was also made, pt was informed about the lack of data on its usefulness and associated risks of open heart surgery. Pt opted to start Pradaxa. Cardiology also reccomended close monitoring of the loop recorder data after discharge. Pt was discharge on Plavix,Pradaxa and Atorvastatin 80 mg. #2 pain management- multifactorial with some neuralgia most likely from post herpetic neuralgia as patient has hx of shingles. Managed with opiates and APAP. Gabapentin home regimen was resumed when patient became stable. #Discharge disposition: Pt underwent PT/OT session with marked improvement but still below baseline. It was reccomended that patient be admitted to short term rehab after discharge. Allergies: Coded Allergies: NO KNOWN ALLERGIES (01/27/16) Pertinent Lab Results: MRA brain- 1. The areas of restricted diffusion in the right cerebellar hemisphere and vermis are increased compared to the prior study, consistent with evolving infarcts. 2. There is a 4 mm area of hyperintensity demonstrated in the left suprasellar cistern. This is nonspecific has no correlate on other sequences. It may be consistent with partial voluming through the dorsum sellae. It could be further evaluated with dedicated MRI scan of the pituitary gland. 3. The right superior cerebellar artery is poorly demonstrated, but there is a prominent right AICA. No focal stenosis, aneurysm or vascular malformations are demonstrated elsewhere on the MR angiogram. ORDERING PHYSICIAN: ORESTES TOWNSEND MD SERVICE DATE: 06/10/17- EXAM TYPE: US - [id number] DOPPLER EXAMINATION: DUPLEX BILATERAL CAROTID ULTRASOUND CLINICAL INFORMATION: Dizziness and syncope. COMPARISON: Carotid duplex dated 07/21/2012. TECHNIQUE: Real-time ultrasound and Doppler techniques (integrating B-mode 2D vascular images, Doppler spectral analysis and color flow Doppler imaging) were utilized to interrogate the extracranial carotid and vertebral arteries bilaterally. FINDINGS: Right side: 1. There is no significant hyperechoic plaque in the ECA/ICA region. 2. The common carotid artery velocity is 77 cm/s. 3. The proximal internal carotid artery velocities are 71 cm/s systolic and 28 cm/s diastolic. 4. The external carotid artery velocity is 122 cm/s. Left side: 1. There is mild hyperechoic plaque in the ECA/ICA region. 2. The common carotid artery velocity is 99 cm/s. 3. The proximal internal carotid artery velocities are 53 cm/s systolic and 20 cm/s diastolic. 4. The external carotid artery velocity is 94 cm/s. ADDITIONAL FINDINGS: 1. The vertebral arteries show antegrade flow. IMPRESSION: 1. RIGHT: Minimal, nonhemodynamically significant stenosis of the proximal right internal carotid artery corresponding to a 0-49% stenosis by velocity criteria. 2. LEFT: Minimal, nonhemodynamically significant stenosis of the proximal left internal carotid artery corresponding to a 0-49% stenosis by velocity criteria. 3. Antegrade flow is seen via the bilateral vertebral arteries. DICTATED BY: JULIO MARI MD SERVICE DATE: 06/13/17-599 EXAM TYPE: CARD - TRANSESOPHAGEAL ECHO OJCONSTANTINE Age: 71 : Gender: M Exam Date: 06/13/2017 09:59 Exam Location: [address] [place] [address] Ht (in): 71 Wt (lb): 214 BSA: 2.23 BP: 140 / 90 Ordering Physician: REBEKAH MARQUEZ MD Referring Physician: REBEKAH MARQUEZ MD Technologist: Giovanny Leavitt [facility] Room Number: 171-1 Indications: SOURCE OF EMBOLUS Rhythm: Sinus Technical Quality: Excellent Medications Propofol administered by Anesthesiology. Ease of Transducer Insertion No Difficulty Complications None. Technical Difficulty None. FINDINGS Left Ventricle Normal global left ventricular size, wall thickness, systolic function with no obvious regional wall motion abnormalities. Left ventricular ejection fraction is estimated at 55 %. Right Ventricle Normal right ventricular size and function. Right Atrium Normal right atrial size. Left Atrium Mild left atrial dilatation. LA Appendage No thrombus detected in the left atrial appendage. IA Septum Patent foramen ovale. Interatrial septal aneurysm. Mitral Valve No mitral stenosis. Structurally normal mitral valve. Trace mitral regurgitation. Aortic Valve Trileaflet aortic valve. No aortic stenosis. Tricuspid Valve Structurally normal tricuspid valve. Trace tricuspid regurgitation. Unable to estimate the right ventricular systolic pressure. Pulmonic Valve Pulmonic valve not well visualized, grossly normal. Pericardium No pericardial effusion. Great Vessels Borderline aortic root dilatation. CONCLUSIONS Normal global left ventricular size, wall thickness, systolic function with no obvious regional wall motion abnormalities. Left ventricular ejection fraction is estimated at 55 %. Mild left atrial dilatation. No thrombus detected in the left atrial appendage. Patent foramen ovale. Interatrial septal aneurysm. Borderline aortic root dilatation. No intracardiac thrombus or vegetation. Henri Underwood M.D. (Electronically Signed) Disposition Summary Disposition Principal Diagnosis: Cerebellar stroke Additional Diagnosis: Interatrial septal aneurysm with PFO Discharge Disposition: home or self care Discharge Instructions General Discharge Information Code Status: Full Code Patient's Diet: heart healthy diet Patient's Activity: As tolerated Follow-Up Instructions/Appts: #1 please follow up with her primary care provider within the week of discharge. #2 please follow-up with your career representative within the week of discharge. #3 please follow-up with your neurologist with no week of discharge. #4 please take your medications as prescribed. Medications at Discharge Discharge Medications: Stop taking the following medications: Simvastatin (Zocor*) 40 MG TABLET ORAL Every night Continue taking these medications: Clopidogrel Bisulfate (Clopidogrel) 75 MG TABLET 1 Tablet ORAL DAILY Qty = 90 Pregabalin (Lyrica) 100 MG CAPSULE 1 Capsule ORAL TWICE DAILY Qty = 60 Doxazosin Mesylate (Doxazosin Mesylate) 2 MG TABLET 0.5 Tablet ORAL DAILY Qty = 30 Doxazosin Mesylate (Doxazosin Mesylate) 2 MG TABLET 1 Tablet ORAL DAILY Qty = 30 This prescription has been renewed Gabapentin (Neurontin) 300 MG CAPSULE 1 Capsule ORAL Every night Qty = 30 This prescription has been renewed Pregabalin (Lyrica) 100 MG CAPSULE 1 Capsule ORAL THREE TIMES DAILY Qty = 270 This prescription has been renewed Start taking the following new medications: Atorvastatin Calcium (Atorvastatin Calcium) 80 MG TABLET 80 Milligram ORAL 5 PM Qty = 30 No Refills Dabigatran Etexilate Mesylate (Pradaxa 150 MG) 150 MG CAPSULE 1 Capsule ORAL TWICE DAILY Qty = 60 No Refills Copies To: LORE VALLES,FAISAL Contreras III Attending MD Review Statement Documenting Attending: MARVIN VALLES,SERA
[2017-06-12 22:00] VITALS: BP 140/80
[2017-06-13 06:00] VITALS: BP 110/72
--- NOTE | 2017-06-13 07:07 | PN- Housestaff ---
STEPHEN VALLES,KIMMIE 06/13/17 0706: Subjective Follow-up For: CVA Subjective: Seen and examined at bedside. Still has neurological deficits of dysmetria, however patient reports marked improvement. Speech is normal. No acute telemetry or o/n event noted. Review of Systems Constitutional: Reports: see HPI. Objective Last 24 Hrs of Vital Signs/I&O Vital Signs Date Time Temp Pulse Resp B/P B/P Pulse O2 O2 Flow FiO2 Mean Ox Delivery Rate 06/13 1459 98.8 84 18 120/62 96 Room Air 06/13 1248 55 124/70 06/13 0600 98.0 60 18 110/72 97 CPAP 06/13 0000 CPAP 06/12 2200 98.3 59 20 140/80 96 Room Air Intake & Output 06/13 1600 06/13 0800 06/13 0000 Intake Total 940 0 560 Output Total 400 550 800 Balance 540 -550 -240 Intake, IV 500 0 Intake, Oral 440 0 560 Number 1 0 Bowel Movements Output, Urine 400 550 800 Physical Exam General Appearance: Alert, Oriented X3, Cooperative Lymphatic: Axillary nl, Cervical nl Cardiovascular: Regular Rate, Normal S1, Normal S2, No Murmurs Lungs: Clear to Auscultation, Normal Air Movement Abdomen: Normal Bowel Sounds, Soft, No Tenderness Neurological: Normal Speech, Sensation Intact, DSYEMTRIA AND DYSDIADOKINESIA OF RIGHT SIDE NOTED Assessment/Plan Assessment: Mr Sargent is a 71-year-old man with a PMH of TIAs 2 approximately 2 years ago w/ an implanted loop recorder in place, shingles in 1970s, postherpetic neuralgia, YONAS unresolved S/P uvulectomy > 40yrs ago and currently on nocturnal CPAP (8 mmHg), L4/L5/S1 decompression and a fractured left ankle who was BIBA after sudden onset generalized body weakness and right limb twitching x 1day prior to admission. He also had nausea and vomiting at the time of physical examination in the ED. Below is the problem list and plan: #Abnormal ANKUSH findings interatrial septal aneurysm with PFO on transesophageal echocardiogram. This raises a possibility of paradoxical thrrombus. Discussed findings with patients and the 3 possible options (Dual antiplatelet with ASA dose increased to 162, starting anticoagulation with Pradaxa favored due to its reversibility, surgical repair and closure of the PFO[Informed pt current data is not in favor of this option). Patient is leaning towards Pradaxa, but wanted to discuss with spouse and decide tomorrow before discharge. Will also obtain b/l lower extremity doppler given the new echo finding, eventhough inocente unlikley will find find DVT . #2 right limb ataxia, nystagmus, nausea vomiting-patient was initially admitted on general medicine floor, was transferred to telemetry upon worsening of symptoms. Radiological finding of Cerebellum CVA. The patient showed remarkable improvement in the last 48-72hours. No new symptoms. Dr. Graves, neurologist advising. Continue the patient on dual antiplatelet therapy-aspirin, Plavix and high intensity statin. Several episodes of TIA, and radiological and clinical evidence of cerebellar stroke, with no other risk factors would require a careful evaluation of a possible cardiac source. As per the ticket printer and tagger, there were no abnormal arrhythmias recorded in the last few months. Will Continue to monitor closely, including hemodynamics considering cerebellar infarct. No family history of strokes, or clotting disorders. #3 pain management-continue with opiates, and Tylenol. Resume gabapentin, once the patient is more stable. Disposition: Awaiting STR placement. New finding of ANKUSH does not change disposition. Problem List: 1. Cerebellar stroke Pain Ratin Pain Location: NONE Pain Goal: Pain 4 or less Pain Plan: PER PATHWAY Tomorrow's Labs & Rationales: CBC SERA LOGAN 06/13/17 0915: Attending MD Review Statement Attending Statement Attending MD Statement: examined this patient, discuss w/resident/PA/MECHANIC'S ASSISTANT, agreed w/resident/PA/MECHANIC'S ASSISTANT, discussed with family, reviewed EMR data (avail), discussed with nursing, discussed with case mgmt, reviewed images, amended to note Attending Assessment/Plan: Patient clinically stable, neurochecks stable, echo EF 60% no RWMA. normal EEG results, f/u neurology, Continue dual antiplatelet therapy, Continue statin. As per cardiology, loop recorder interrogated with no lcear evidence of episodes of afib and patient need a ANKUSH f/u, negative carotid Doppler ultrasound. PT eval for d/c planning recommends acute rehab. case management on board.
[2017-06-13 08:11] LABS: ABSOLUTE BASOPHIL COUNT 0 /CUMM (0.0-0.2); ABSOLUTE EOSINOPHIL COUNT 0.1 /CUMM (0.0-0.7); ABSOLUTE GRANULOCYTE CT 3.4 /CUMM (1.4-6.5); ABSOLUTE LYMPH COUNT 1.4 /CUMM (1.2-3.4); ABSOLUTE MONOCYTE COUNT 0.7 /CUMM (0.10-0.60); BASOPHIL % 0.5 % (0.0-2.0); GRANULOCYTE % 61.1 % (42.2-75.2); HEMATOCRIT 43.6 % (42-52); MEAN CORPUSCULAR HGB 30.5 PG (27.0-31.0); MEAN CORPUSCULAR HGB CONC 33.7 G/DL (33.0-37.0); MEAN CORPUSCULAR VOLUME 90.7 FL (80.0-94.0); MEAN PLATELET VOLUME 8.2 FL (7.4-10.4); PLATELET COUNT 199 /CUMM (130-400); RBC DISTRIBUTION WIDTH 14.2 % (11.5-14.5); RED BLOOD CELL CT 4.81 /CUMM (4.70-6.10); WHITE BLOOD CELL COUNT 5.6 /CUMM (4.8-10.8)
[2017-06-13] MEDS ORDERED: ASPIRIN81 M4 PO (10:37)
--- NOTE | 2017-06-13 11:27 | PN- Cardiology ---
Subjective Subjective: Neurologic symptoms grossly unchanged. No chest pain, dyspnea, or palpitations. Objective Vital Signs and I&Os Vital Signs Date Time Temp Pulse Resp B/P B/P Pulse O2 O2 Flow FiO2 Mean Ox Delivery Rate 06/13 0600 98.0 60 18 110/72 97 CPAP 06/13 0000 CPAP 06/12 2200 98.3 59 20 140/80 96 Room Air 06/12 1421 98.7 61 20 146/72 96 Room Air Intake & Output 06/13 1600 06/13 0800 06/13 0000 06/12 1600 06/12 0800 06/12 0000 Intake Total 0 560 400 Output Total 550 800 225 500 950 Balance -550 -240 175 -500 -950 Intake, IV 0 Intake, Oral 0 560 400 Number 0 3 Bowel Movements Output, Urine 550 800 225 500 950 Physical Exam: General: no apparent distress. Alert. Eyes: No obvious scleral icterus. HEENT: No jugular venous distention or abnormal jugular venous pulsations. Cardiovascular: Normal intensity S1/S2. Regular Respiratory: Lungs clear to auscultation bilaterally. Abdomen: Soft, nontender with no guarding or rebound tenderness. Musculoskeletal: No clubbing or cyanosis noted, no edema Skin: Warm Neurologic: Normal speech Lymph: No gross lymphadenopathy. Current Medications: Current Medications Sig/Mckay Start time Last Medication Dose Route Stop Time Status Admin Acetaminophen 1,000 MG BID 06/08 1400 AC 06/09 IV 2137 Acetaminophen 650 MG Q6P PRN 06/07 1630 AC PO Aspirin 81 MG DAILY 06/09 1000 AC 06/12 PO 1019 Atorvastatin Calcium 80 MG 1700 06/08 1700 AC 06/12 PO 1819 Bisacodyl 10 MG DAILY PRN 06/10 2100 AC 06/11 [place] 0949 Clopidogrel Bisulfate 75 MG DAILY 06/08 1000 AC 06/12 PO 1019 Enoxaparin Sodium 40 MG DAILY 06/07 1626 AC 06/12 SC 1019 Lidocaine 0 .STK-MED ONE 06/13 0749 DC TOP Oxycodone/ 1 TAB Q6P PRN 06/07 1630 AC 06/08 Acetaminophen PO 1429 Patient Medication 1 ED .STK-MED ONE 06/12 1409 DC Teaching ED 06/12 1410 Polyethylene Glycol 17 GM DAILY 06/09 1838 AC 06/11 PO 0947 Promethazine HCl 25 MG Q4P PRN 06/07 1815 AC 06/08 IV 06/14 1814 0715 Senna/Docusate Sodium 1 TAB BID PRN 06/12 1613 AC PO Senna/Docusate Sodium 1 TAB BID 06/09 2200 DC 06/12 PO 1020 Results Last 48 Hrs of Labs/Mics: Laboratory Tests 06/13/17 0613: Anion Gap 10, Estimated GFR > 60, BUN/Creatinine Ratio 17.5, CBC w Diff NO MAN DIFF REQ, RBC 4.81, MCV 90.7, MCH 30.5, RDW 14.2, MPV 8.2, Gran % 61.1, Lymphocytes % 24.1, Monocytes % 12.3 H, Eosinophils % 2.0, Basophils % 0.5, Absolute Granulocytes 3.4, Absolute Lymphocytes 1.4, Absolute Monocytes 0.7 H, Absolute Eosinophils 0.1, Absolute Basophils 0, PUBS MCHC 33.7 06/12/17 1757: Anion Gap 8, Estimated GFR > 60, BUN/Creatinine Ratio 17.8 06/12/17 0653: CBC w Diff NO MAN DIFF REQ, RBC 4.62 L, MCV 90.1, MCH 30.4, RDW 14.4, MPV 7.9, Gran % 60.2, Lymphocytes % 23.8, Monocytes % 13.3 H, Eosinophils % 2.2, Basophils % 0.5, Absolute Granulocytes 3.2, Absolute Lymphocytes 1.3, Absolute Monocytes 0.7 H, Absolute Eosinophils 0.1, Absolute Basophils 0, PUBS MCHC 33.7 06/12/17 0638: Anion Gap 6, Estimated GFR > 60, BUN/Creatinine Ratio 33.3 H Recent Imaging Studies: Telemetry tracings were personally reviewed show sinus rhythm/sinus bradycardia Transesophageal echocardiogram performed earlier today shows no evidence of intracardiac thrombus or vegetation; atrial septal aneurysm was noted with PFO/+ Buble study Assessment/Plan Assessment/Plan 1. Acute CVA 2. Prior recurrent TIA 3. Implantable loop recorder 4. Sleep apnea 5. Possible postherpetic neuralgia 6. Mild aortic root dilatation by echo 7. Interatrial septal aneurysm with PFO on transesophageal echocardiogram I performed a transesophageal echocardiogram on the patient this morning without complication. An interatrial septal aneurysm with PFO on transesophageal echocardiogram was noted; it is difficult to know whether or not this is an incidental finding or a possible etiology of his recurrent neurologic events. He will discuss with his youth care worker in the future about consideration of possible empiric anticoagulation or possible invasive intervention for the aneurysm/PFO. Continue on dual antiplatelet and high-dose statin therapy for now. I would favor changing aspirin to 162 mg daily. He will need close monitoring of the loop recorder data after discharge. I would recommend obtaining lower extremity Dopplers as well; the possibility of paradoxical embolism does now fall in the differential. Pranay Underwood MD [facility] Continue telemetry? No
--- NOTE | 2017-06-13 12:11 | ECHOCARDIOGRAM REPORT ---
CONSTANTINE MCWILLIAMS Age: 71 : Gender: M Exam Date: 06/13/2017 09:59 Exam Location: [address] Ht (in): 71 Wt (lb): 214 BSA: 2.23 BP: 140 / 90 Ordering Physician: REBEKAH MARQUEZ MD Referring Physician: REBEKAH MARQUEZ MD Technologist: Giovanny Leavitt [facility] Room Number: [id number] Indications: SOURCE OF EMBOLUS Rhythm: Sinus Technical Quality: Excellent Medications Propofol administered by Anesthesiology. Ease of Transducer Insertion No Difficulty Complications None. Technical Difficulty None. FINDINGS Left Ventricle Normal global left ventricular size, wall thickness, systolic function with no obvious regional wall motion abnormalities. Left ventricular ejection fraction is estimated at 55 %. Right Ventricle Normal right ventricular size and function. Right Atrium Normal right atrial size. Left Atrium Mild left atrial dilatation. LA Appendage No thrombus detected in the left atrial appendage. IA Septum Patent foramen ovale. Interatrial septal aneurysm. Mitral Valve No mitral stenosis. Structurally normal mitral valve. Trace mitral regurgitation. Aortic Valve Trileaflet aortic valve. No aortic stenosis. Tricuspid Valve Structurally normal tricuspid valve. Trace tricuspid regurgitation. Unable to estimate the right ventricular systolic pressure. Pulmonic Valve Pulmonic valve not well visualized, grossly normal. Pericardium No pericardial effusion. Great Vessels Borderline aortic root dilatation. CONCLUSIONS Normal global left ventricular size, wall thickness, systolic function with no obvious regional wall motion abnormalities. Left ventricular ejection fraction is estimated at 55 %. Mild left atrial dilatation. No thrombus detected in the left atrial appendage. Patent foramen ovale. Interatrial septal aneurysm. Borderline aortic root dilatation. No intracardiac thrombus or vegetation. Henri Underwood M.D. (Electronically Signed) Final Date: 13 June 2017 12:10 MEASUREMENTS (Male / Female) Normal Values 2D ECHO Aortic Root Diameter 4.0 cm
[2017-06-13 12:48] VITALS: BP 124/70
--- NOTE | 2017-06-13 13:20 | NUR ---
PHYSICAL THERAPY: Pt HELD FROM OOB/PT THIS AFTERNOON WAITING FOR DOPPLER US OF LE'S TO R/O DVT.\ DISCUSSED THIS WITH SHAGGER KIMMIE. DISPOSITION HASN'T CHANGED ACUTE REHAB IS STILL RECOMENDED. WILL FOLLOW ONCE TEST RESULTS ARE BACK
[2017-06-13 14:59] VITALS: BP 120/62
--- NOTE | 2017-06-13 16:43 | ULTRASOUND REPORT ---
EXAMINATION: US TRIPLEX OF LOWER EXTREMITIES, BILATERAL CLINICAL INFORMATION: This is a 71-year-old male with a history of CVA. Echocardiogram demonstrates patent foramen ovale. Possible periductal clinical emboli. COMPARISON: None TECHNIQUE: Color-flow triplex imaging with spectral analysis and compression Doppler were performed on the lower extremities. FINDINGS: Respiratory variation, normal compression and augmented flow are noted throughout the lower extremities. The visualized common femoral vein, superficial femoral vein, profunda femoral vein, popliteal vein and midcalf peroneal and posterior tibial venous segments show no evidence of deep venous thrombosis. There is no Amaya's cyst. Minimal lower extremity edema is noted but no deep vein thrombosis. IMPRESSION: Normal triplex scan without evidence of deep venous thrombosis involving the lower extremities.
[2017-06-13 21:23] VITALS: BP 118/60
--- NOTE | 2017-06-14 07:59 | PN- Housestaff ---
STEPHEN VALLES,KIMMIE 06/14/17 0759: Subjective Follow-up For: CVA Subjective: Seen and examine at bedside. Does not offer any new acute complaint. residual right sided dysmetria is still noted, with patient reporting marked improvement. VS stable, no acute o/n acute event. Review of Systems Constitutional: Reports: see HPI. Objective Last 24 Hrs of Vital Signs/I&O Vital Signs Date Time Temp Pulse Resp B/P B/P Pulse O2 O2 Flow FiO2 Mean Ox Delivery Rate 06/14 1521 97.9 70 18 122/68 96 Room Air 06/14 1424 98.0 62 18 110/62 06/14 0900 98.0 62 18 110/62 97 Room Air 06/13 2123 98.4 57 20 118/60 97 06/13 1808 Room Air Room Air Intake & Output 06/14 1600 06/14 0800 06/14 0000 Intake Total 540 0 400 Output Total 475 550 450 Balance 65 -550 -50 Intake, Oral 540 0 400 Number 0 Bowel Movements Output, Urine 475 550 450 Physical Exam General Appearance: Alert, Oriented X3, Cooperative Other Physical Findings: Lymphatic: Axillary nl, Cervical nl Cardiovascular: Regular Rate, Normal S1, Normal S2, No Murmurs Lungs: Clear to Auscultation, Normal Air Movement Abdomen: Normal Bowel Sounds, Soft, No Tenderness Neurological: Normal Speech, Sensation Intact, DSYEMTRIA AND DYSDIADOKINESIA OF RIGHT SIDE NOTED, improved compared to yesterday. Current Medications: Current Medications Sig/Mckay Start time Last Medication Dose Route Stop Time Status Admin Acetaminophen 650 MG .STK-MED ONE 06/14 0628 DC PO 06/14 0629 Acetaminophen 1,000 MG BID 06/08 1400 DCD 06/09 IV 2137 Acetaminophen 650 MG Q6P PRN 06/07 1630 DCD 06/14 PO 0627 Aspirin 162 MG DAILY 06/14 1000 DC 06/14 PO 0834 Atorvastatin Calcium 80 MG 1700 06/08 1700 DCD 06/13 PO 1742 Bisacodyl 10 MG DAILY PRN 06/10 2100 DCD 06/11 PA 0949 Clopidogrel Bisulfate 75 MG DAILY 06/08 1000 DCD 06/14 PO 0835 Dabigatran 150 MG BID 06/14 2200 DCD PO Dabigatran 150 MG BID 06/14 1009 CAN PO Enoxaparin Sodium 40 MG DAILY 06/07 1626 DC 06/14 SC 0834 Oxycodone/ 1 TAB Q6P PRN 06/07 1630 DC 06/08 Acetaminophen PO 1429 Patient Medication 1 ED .STK-MED ONE 06/14 1400 OH Teaching ED 06/14 1401 Polyethylene Glycol 17 GM DAILY 06/09 1838 DCD 06/11 PO 0947 Promethazine HCl 25 MG Q4P PRN 06/07 1815 DCD 06/08 IV 06/14 1814 0715 Senna/Docusate Sodium 1 TAB BID PRN 06/12 1613 DCD PO Last 24 Hrs of Lab/Isaiah Results Last 24 Hrs of Labs/Mics: Laboratory Tests 06/14/17 1235: Anion Gap 10, Estimated GFR > 60, BUN/Creatinine Ratio 17.8, CBC w Diff NO MAN DIFF REQ, RBC 4.98, MCV 89.0, MCH 30.4, RDW 14.5, MPV 8.2, Gran % 64.7, Lymphocytes % 22.6, Monocytes % 11.2 H, Eosinophils % 1.1, Basophils % 0.4, Absolute Granulocytes 3.9, Absolute Lymphocytes 1.4, Absolute Monocytes 0.7 H, Absolute Eosinophils 0.1, Absolute Basophils 0, PUBS MCHC 34.2 Assessment/Plan Assessment: Mr Sargent is a 71-year-old man with a PMH of TIAs 2 approximately 2 years ago w/ an implanted loop recorder in place, shingles in , postherpetic neuralgia, YONAS unresolved S/P uvulectomy > 40yrs ago and currently on nocturnal CPAP (8 mmHg), L4/L5/S1 decompression and a fractured left ankle who was BIBA after sudden onset generalized body weakness and right limb twitching x 1day prior to admission. He also had nausea and vomiting at the time of physical examination in the ED. Below is the problem list and plan: #Abnormal ANKUSH findings interatrial septal aneurysm with PFO on transesophageal echocardiogram. This raises a possibility of paradoxical thrrombus. Discussed findings with patients and the 3 possible options (Dual antiplatelet with ASA dose increased to 162, starting anticoagulation with Pradaxa favored due to its reversibility, surgical repair and closure of the PFO[Informed pt current data is not in favor of this option). Patient is leaning towards Pradaxa, but wanted to discuss with spouse and decide tomorrow before discharge. Will also obtain b/l lower extremity doppler given the new echo finding, ok stephen will find find DVT . #2 right limb ataxia, nystagmus, nausea vomiting-patient was initially admitted on general medicine floor, was transferred to telemetry upon worsening of symptoms. Radiological finding of Cerebellum CVA. The patient showed remarkable improvement in the last 48-72hours. No new symptoms. Dr. Graves, neurologist advising. Continue the patient on dual antiplatelet therapy-aspirin, Plavix and high intensity statin. Several episodes of TIA, and radiological and clinical evidence of cerebellar stroke, with no other risk factors would require a careful evaluation of a possible cardiac source. As per the customer support manager, there were no abnormal arrhythmias recorded in the last few months. Will Continue to monitor closely, including hemodynamics considering cerebellar infarct. No family history of strokes, or clotting disorders. #3 pain management-continue with opiates, and Tylenol. Resume gabapentin, once the patient is more stable. Disposition: Awaiting STR placement. New finding of ANKUSH does not change disposition. Problem List: 1. Cerebellar stroke Pain Ratin Pain Location: diffuse Pain Goal: Pain 4 or less Pain Plan: per pathway Tomorrow's Labs & Rationales: none-discharge SERA WONG 06/14/17 1122: Attending MD Review Statement Attending Statement Attending MD Statement: examined this patient, discuss w/resident/PA/CHIEF OF FIELD OPERATIONS, agreed w/resident/PA/CHIEF OF FIELD OPERATIONS, discussed with family, reviewed EMR data (avail), discussed with nursing, discussed with case mgmt, reviewed images, amended to note Attending Assessment/Plan: Patient clinically stable, neurochecks stable, echo EF 60% no RWMA. normal EEG results, f/u neurology, Patient started on pradaxa as per cardiology, c/w plavix at d/c. Continue statin. As per cardiology, loop recorder interrogated with no clear evidence of episodes of afib and patient need a ANKUSH which showed patent intervenrtricualr septum, negative carotid Doppler ultrasound, negative USG b/l lower extremity. PT eval for d/c planning recommends acute rehab. case management on board. anticipate d/c soon.
--- NOTE | 2017-06-14 08:54 | PN- Cardiology ---
Subjective Subjective: Telemetry reviewed. Sinus rhythm throughout. Patient receiving physical therapy at the moment. Denies any cardiac issues. Discussion on Pradaxa he is willing to start Pradaxa before he sees his traffic agent. Objective Vital Signs and I&Os Vital Signs Date Time Temp Pulse Resp B/P B/P Pulse O2 O2 Flow FiO2 Mean Ox Delivery Rate 06/13 2123 98.4 57 20 118/60 97 06/13 1808 Room Air Room Air 06/13 1459 98.8 84 18 120/62 96 Room Air 06/13 1248 55 124/70 Intake & Output 06/14 1600 06/14 0800 06/14 0000 06/13 1600 06/13 0800 06/13 0000 Intake Total 0 400 940 0 560 Output Total 550 450 400 550 800 Balance -550 -50 540 -550 -240 Intake, IV 500 0 Intake, Oral 0 400 440 0 560 Number 0 1 0 Bowel Movements Output, Urine 550 450 400 550 800 Physical Exam: Gen. exam patient comfortable sitting up in bed. Head normocephalic atraumatic Eyes sclera anicteric conjunctiva showed no pallor extraocular muscles were normal Neck no jugular venous distention no thyroid masses no palpable nodes no bruits Chest lungs were clear bilaterally Heart regular rhythm without murmurs Abdomen soft no organomegaly bowel sounds normal next and extremities no clubbing cyanosis or pedal pedal edema. neurological no gross motor or sensory deficits but coordination issues. Current Medications: Current Medications Sig/Mckay Start time Last Medication Dose Route Stop Time Status Admin Acetaminophen 1,000 MG BID 06/08 1400 AC 06/09 IV 2137 Acetaminophen 650 MG Q6P PRN 06/07 1630 AC 06/14 PO 0627 Aspirin 162 MG DAILY 06/14 1000 AC 06/14 PO 0834 Aspirin 81 MG ONCE ONE 06/13 1200 DC 06/13 PO 06/13 1201 1236 Aspirin 81 MG DAILY 06/09 1000 DC 06/13 PO 1235 Atorvastatin Calcium 80 MG 1700 06/08 1700 AC 06/13 PO 1742 Bisacodyl 10 MG DAILY PRN 06/10 2100 AC 06/11 NE 0949 Clopidogrel Bisulfate 75 MG DAILY 06/08 1000 AC 06/14 PO 0835 Enoxaparin Sodium 40 MG DAILY 06/07 1626 AC 06/14 SC 0834 Oxycodone/ 1 TAB Q6P PRN 06/07 1630 AC 06/08 Acetaminophen PO 1429 Polyethylene Glycol 17 GM DAILY 06/09 1838 AC 06/11 PO 0947 Promethazine HCl 25 MG Q4P PRN 06/07 1815 AC 06/08 IV 06/14 181 0715 Senna/Docusate Sodium 1 TAB BID PRN 06/12 1613 AC PO Results Last 48 Hrs of Labs/Mics: Laboratory Tests 06/13/17 0613: Anion Gap 10, Estimated GFR > 60, BUN/Creatinine Ratio 17.5, CBC w Diff NO MAN DIFF REQ, RBC 4.81, MCV 90.7, MCH 30.5, RDW 14.2, MPV 8.2, Gran % 61.1, Lymphocytes % 24.1, Monocytes % 12.3 H, Eosinophils % 2.0, Basophils % 0.5, Absolute Granulocytes 3.4, Absolute Lymphocytes 1.4, Absolute Monocytes 0.7 H, Absolute Eosinophils 0.1, Absolute Basophils 0, PUBS MCHC 33.7 06/12/17 1757: Anion Gap 8, Estimated GFR > 60, BUN/Creatinine Ratio 17.8 Assessment/Plan Assessment/Plan In summary this 71-year-old gentleman has the following problems 1. Acute CVA 2. Prior recurrent TIA 3. Implantable loop recorder 4. Sleep apnea 5. Possible postherpetic neuralgia 6. Mild aortic root dilatation by echo 7. Interatrial septal aneurysm with PFO on transesophageal echocardiogram He has not had any documented arrhythmia in the hospital. He is willing to start oral anticoagulants. I would initiate Pradaxa 150 mg twice a day with a glass of water beginning with the evening dose. Of note he is on Lovenox which has the same approximately half-life of Pradaxa. I would also stop aspirin and continue Plavix for now after initiation of Pradaxa. He will then be on novel anticoagulants and then discuss with his traffic agent if should be continued. Continue telemetry? Yes
[2017-06-14 09:00] VITALS: BP 110/62
[2017-06-14] MEDS ORDERED: PRADAXA150 M1 PO (10:06)
[2017-06-14] MEDS ORDERED: ATORVASTATIN CA80 M1 PO (10:41)
[2017-06-14 13:54] LABS: ABSOLUTE BASOPHIL COUNT 0 /CUMM (0.0-0.2); ABSOLUTE EOSINOPHIL COUNT 0.1 /CUMM (0.0-0.7); ABSOLUTE GRANULOCYTE CT 3.9 /CUMM (1.4-6.5); ABSOLUTE LYMPH COUNT 1.4 /CUMM (1.2-3.4); ABSOLUTE MONOCYTE COUNT 0.7 /CUMM (0.10-0.60); BASOPHIL % 0.4 % (0.0-2.0); EOSINOPHIL % 1.1 % (0-5); GRANULOCYTE % 64.7 % (42.2-75.2); HEMATOCRIT 44.3 % (42-52); MEAN CORPUSCULAR HGB 30.4 PG (27.0-31.0); MEAN CORPUSCULAR HGB CONC 34.2 G/DL (33.0-37.0); MEAN PLATELET VOLUME 8.2 FL (7.4-10.4); PLATELET COUNT 220 /CUMM (130-400); RBC DISTRIBUTION WIDTH 14.5 % (11.5-14.5); RED BLOOD CELL CT 4.98 /CUMM (4.70-6.10); WHITE BLOOD CELL COUNT 6.1 /CUMM (4.8-10.8)
[2017-06-14 14:24] VITALS: BP 110/62
[2017-06-14 15:21] VITALS: BP 122/68
== END 2017-06-14 16:20 | DRG 65 ==
LOC: ERH 07:44 → 1NO 14:24 → ERHI 14:24 → 2NB 14:24 → 1NO 14:24 → 2NB 14:24 → ENRESERV 16:13 → ENTRNSPT 16:41 → 2NB 17:30 → CMPTRNSPT 18:22 → 1NO 06-08 10:46 → ENTRNSPT 06-12 13:55 → EDTRNSPTSTS 06-12 14:21 → EDTRNSPT 06-12 14:21 → CMPTRNSPT 06-12 15:04 → ENPENDDIS 06-14 13:44 → 1NO 06-14 16:20
PROVIDERS: Internal Medicine; Internal Medicine Endocrinology, Diabetes & Metabolism; Physician Assistant Medical; Student in an Organized Health Care Education/Training Program; ADMIT Internal Medicine
PROC: B246ZZ4 Ultrasonography of Right and Left Heart, Transesophageal (ICD-10-PCS; principal; 2017-06-13)
DX: I63.9 Cerebral infarction, unspecified (principal); B02.29 Other postherpetic nervous system involvement; Q21.1 Atrial septal defect; I69.393 Ataxia following cerebral infarction; G47.33 Obstructive sleep apnea (adult) (pediatric); I44.0 Atrioventricular block, first degree; I77.819 Aortic ectasia, unspecified site; E83.39 Other disorders of phosphorus metabolism; Z86.73 Personal history of transient ischemic attack (TIA), and cerebral infarction without residual deficits
CPT/HCPCS: 1NP; 2NSBP; 70551; 70552; 70555; 86618; 36415; 70553; 80307; 82436; 93005; 93010; 93306; 93325; 93970; 95816; 96374; 96375; 96376; 97110-GO; 97112-GO; 97162-GP; 97165-GO; 97530-GO; A9579; G0480; J0131; J1200; J1650; J2405; J2550; J3360; J3490; J7040; J7042